=== PATIENT | female | born 1950 | race Caucasian/White ===

== ENCOUNTER → 2017-01-07 | Outpatient (CLI) | payer OTHER ==
[~2017-01-07] MED LIST: ASPI81TA21 PO; ATEN-173 PO; CALC-354; CARB25TA12 PO; CHOL2000; CLON0.5T3 PO; CRS10 PO; FLUO40CA8 PO; HYDR2TAB3 PO; OMEG10007 PO; PANT40TA PO; VALA1TAB2 PO
[2017-01-07 12:42] LABS: BASO % 0.8 %; BASO ABS # 0.06 K/uL (0-0.2); COMPLETE YES; EOS % 7.5 %; HEMATOCRIT 45.2 % (37-47); IG% 0.1 %; LYMPH % 25.5 %; LYMPH ABS # 1.94 K/uL (1.2-3.4); MEAN CELL VOLUME 89.2 fL (80-100); MEAN CORPUSCULAR HEMOGLOBIN 30.6 pg (25-34); MEAN CORPUSCULAR HGB CONC 34.3 g/dl (32-36); MEAN PLATELET VOLUME 10.6 fL (7.4-10.4); MONO % 6.7 %; NEUT % 59.4 %; PLATELET COUNT 313 K/uL (130-400); RED BLOOD COUNT 5.07 M/uL (4.2-5.4)
[2017-01-07 13:11] LABS: BLOOD UREA NITROGEN 19 mg/dl (7-18); BUN/CREATININE RATIO 26.3 (10-20); CARBON DIOXIDE 30 mmol/L (21-32); CHLORIDE 104 mmol/L (98-107); CREATININE 0.72 mg/dl (0.60-1.20); GLUCOSE 52 mg/dl (70-99); POTASSIUM 3.5 mmol/L (3.5-5.1); SODIUM 141 mmol/L (136-145)
== END | disposition home or self-care (01) ==
LOC: C.CPL 10:42
PROVIDERS: ATTEND Orthopaedic Surgery
DX: M75.02 Adhesive capsulitis of left shoulder (principal); Z01.812 Encounter for preprocedural laboratory examination; Z01.810 Encounter for preprocedural cardiovascular examination

== ENCOUNTER → 2017-08-07 | Outpatient (CLI) | payer OTHER ==
--- NOTE | 2017-08-07 14:35 | MAMMOGRAPHY REPORT ---
BILATERAL DIGITAL SCREENING MAMMOGRAM TOMOSYNTHESIS WITH CAD: 08/07/2017 CLINICAL HISTORY: Routine screening. Patient has no complaints. TECHNIQUE: Breast tomosynthesis in addition to standard 2D mammography was performed. Current study was also evaluated with a Computer Aided Detection (CAD) system. COMPARISON: Comparison is made to exams dated: 08/05/2016 mammogram, 07/17/2015 mammogram, 06/18/2013 mammogram, 07/14/2014 mammogram, 04/28/2012 mammogram, and 04/10/2011 mammogram - [facility]. BREAST COMPOSITION: There are scattered areas of fibroglandular density in both breasts. FINDINGS: No suspicious masses, calcifications, or areas of architectural distortion are noted in ei ther breast. There has been no significant interval change compared to prior exams. Bilateral benign appearing calcifications are not significantly changed. A linear scar marker denotes a scar on the left superior posterior breast. IMPRESSION: ACR BI-RADS CATEGORY 2: BENIGN There is no mammographic evidence of malignancy. A 1 year screening mammogram is recommended. The pa tient will receive written notification of the results. Approximately 10% of breast cancers are not detected with mammography. A negative mammographic report should not delay biopsy if a clinically suggestive mass is present. Angela Schulz M.D. ah/:08/07/2017 13:26:01 Database Manager: Nazanin JAMES(Ana)(M), [facility] letter sent: Normal 1/2 BI-RADS Code: ACR BI-RADS Category 2: Benign
== END | disposition home or self-care (01) ==
LOC: C.MAMM 09:27
PROVIDERS: ATTEND Physician Assistant
DX: Z12.31 Encounter for screening mammogram for malignant neoplasm of breast (principal)

== ENCOUNTER 2018-01-08 10:09 | Emergency (ER) | payer OTHER ==
[~2018-01-08] VITALS: Ht 160 cm; Wt 89.1 kg
[~2018-01-08 10:09] MED LIST changes: +ASPI-319 PO; -ASPI81TA21 PO
[2018-01-08 10:26] VITALS: TEMP 36.7; Ht 160 cm; Wt 89.1 kg
[2018-01-08] MEDS ORDERED: PHEN-876 PO ×2 (11:06→16:06)
[2018-01-08] MEDS ORDERED: IBUP-1050 PO (11:06)
[2018-01-08] MEDS ORDERED: TYLOTC500 PO (11:06)
[2018-01-08] MEDS ORDERED: CLIN150C PO (11:06)
[2018-01-08 11:47] LABS: BASO % 0.2 %; BASO ABS # 0.03 K/uL (0-0.2); EOS % 7.5 %; EOS ABS # 1.03 K/uL (0-0.5); HEMATOCRIT 41.5 % (37-47); HEMOGLOBIN 14.7 g/dL (12.0-16.0); IG# 0.03 K/uL (0.00-0.02); LYMPH % 9.2 %; LYMPH ABS # 1.26 K/uL (1.2-3.4); MEAN CELL VOLUME 88.1 fL (80-100); MEAN CORPUSCULAR HEMOGLOBIN 31.2 pg (25-34); MEAN CORPUSCULAR HGB CONC 35.4 g/dl (32-36); MONO % 5.2 %; MONO ABS # 0.72 K/uL (0.11-0.59); NEUT % 77.7 %; NEUT ABS # 10.69 K/uL (1.4-6.5); PLATELET COUNT 249 K/uL (130-400); RED CELL DISTRIBUTION WIDTH CV 12.5 % (11.5-14.5); RED CELL DISTRIBUTION WIDTH SD 40.5 fL (36.4-46.3); WHITE BLOOD COUNT 13.76 K/uL (4.8-10.8)
[2018-01-08 11:54] LABS: INR 0.9 (0.9-1.1); PTT PATIENT 25.1 SECONDS (21.0-31.0)
[2018-01-08 12:03] LABS: ALBUMIN 3.7 gm/dl (3.4-5.0); CALCIUM 8.6 mg/dl (8.5-10.1); CREATININE 0.78 mg/dl (0.60-1.20); POTASSIUM 4.1 mmol/L (3.5-5.1)
[2018-01-08] MEDS ORDERED: OPTIRAY 320 IV PRN (12:30)
--- NOTE | 2018-01-08 13:10 | DIAGNOSTIC IMAGING REPORT ---
CT SCAN OF THE ABDOMEN AND PELVIS WITH IV CONTRAST CLINICAL HISTORY: Urinary tract infection. Hematuria. COMPARISON STUDY: Abdominal CT dated 01/13/2008. TECHNIQUE: Following the IV administration of 115 cc of Optiray 320, CT scan of the abdomen and pelvis is performed from the lung bases to the proximal femora. Images are reviewed in the axial, sagittal, and coronal planes. IV contrast was administered without complication. A dose lowering technique was utilized adhering to the principles of ALARA. CT DOSE: 656.77 mGy.cm FINDINGS: Lung bases: The heart is normal in size and without pericardial effusion. The lung bases are clear. Liver: The contrast-enhanced liver is normal in size, contour, and attenuation. There is mild central intrahepatic biliary ductal dilatation. The hepatic veins and portal veins are patent. Gallbladder: Surgically absent noting clips in the gallbladder fossa. Spleen: Normal in size and attenuation. Pancreas: Unremarkable. Adrenal glands: Unremarkable. Kidneys: The contrast enhanced kidneys are normal in size and without hydronephrosis. The kidneys enhance symmetrically. Abdominal vasculature: The abdominal aorta is normal in course and caliber noting moderate atherosclerotic calcification. Bowel: There is a small duodenal diverticulum. No bowel obstruction is seen. The appendix is not clearly identified. Peritoneum: There is no intraperitoneal free air or abdominal ascites. There is a small fat-containing umbilical hernia. Lymphadenopathy: None. Pelvic viscera: The bladder wall is thickened and hyperemic. There is pericystic inflammation, and the appearance suggests cystitis. The uterus and adnexa are normal as imaged. Skeletal structures: The skeletal structures are osteopenic. No lytic or blastic lesions are seen. IMPRESSION: Findings suggest cystitis. Correlation with clinical findings and urinalysis will be required. Electronically signed by: Christian Kramer M.D. 01/08/2018 1:08 PM Dictated Date/Time: 01/08/2018 1:03 PM
[2018-01-08] MEDS ORDERED: CEFTRIAXONE SOD INJ 1 GM ADDVIAL IV STA (13:55)
[2018-01-08] MEDS ORDERED: CEFD300C2 PO (16:06)
[2018-01-08 16:21] VITALS: BP 133/77; PULSE 77; O2SAT 94
--- NOTE | 2018-01-08 17:40 | EMERGENCY ROOM VISIT NOTE ---
History Report prepared by Jennifer: Yandel Austin Under the Supervision of: Dr. Elton Felix M.D. First contact with patient: 10:34 Chief Complaint: URINARY SYMPTOMS Stated Complaint: PASSING BLOOD AND CLOTS, PAIN History of Present Illness The patient is a 67 year old female who presents to the Emergency Room with complaints of persistent urinary symptoms beginning a few days ago. Her symptoms include increased urinary frequency, pain with urination, and hematuria. She has taken Pyridium which improves her symptoms. The patient has noticed clots as well. She is not entirely sure if the bleeding is vaginal, rectal, or from her urine (she assumes it is urine). She was seen by her PCP for her symptoms a few days ago and had a negative urine culture. The urine culture was done a day after she took Augmentin. The patient notes that she was placed on Clindamycin last week for a "boil" on her rectum, and a tooth infection. She states that she then developed a yeast infection after this. She reports that she has been having a lot of diarrhea since starting the Clinda. Pt denies LOC, headache, fevers, chills, diaphoresis, visual changes, neck pain , chest pain, breathing difficulties, nausea, vomiting, abdominal pain, back pain, melena, hematochezia, numbness, weakness, lymphadenopathy, rash, or other complaints. Source of History: patient Onset: A few days ago Symptom Intensity: Pain with urination, hematuria and increased frequency Quality: other (urinary symptoms) Timing: other (persistent) Modifying Factors (Relieving): other (Pyridium) Associated Symptoms: + diarrhea Review of Systems See HPI for pertinent positives and negatives. A total of ten systems were reviewed and were otherwise negative. Past Medical & Surgical Medical Problems: (1) GERD (gastroesophageal reflux disease) (2) HLD (hyperlipidemia) (3) HTN (hypertension) (4) Right knee DJD Family History No pertinent family history stated. Social History Smoking Status: Never Smoker Marital Status: Housing Status: lives with significant other Current/Historical Medications Scheduled Acetaminophen (Tylenol), 500 MG PO DIRECTED Aspirin Enteric Coated (Ecotrin Or Generic), 81 MG PO HS Atenolol (Tenormin), 25 MG PO HS Carbidopa/Levodopa (Sinemet 25MG/100MG), 1 TAB PO TID Cefdinir (Omnicef), 300 MG PO Q12H Cholecalciferol (Vitamin D3), HS Clindamycin Hcl (Cleocin), 150 CAP PO QID Clonazepam (Klonopin), 0.5 MG PO prn Fish Oil ([place]-3), 1 CAP PO DAILY Fluoxetine Hcl (Prozac), 40 MG PO HS Pantoprazole Sodium (Protonix), 40 MG PO HS Phenazopyridine HCl (Pyridium), 1 TAB PO DAILY Rosuvastatin Calcium (Crestor *), 10 MG PO HS Valacyclovir Hcl (Valtrex), 1,000 MG PO HS Scheduled PRN Hydromorphone HCl (Hydromorphone HCl), 4 MG PO Q4HWA PRN for Pain Ibuprofen (Advil), 200-600 MG PO Q4H PRN for Pain Phenazopyridine HCl (Pyridium), 200 MG PO TID PRN for Frequency/Burning w/ Urination Allergies Coded Allergies: Statins (Verified Adverse Reaction, Unknown, JOINT PAIN, 01/08/18) Physical Exam Vital Signs Date Time Temp Pulse Resp B/P (MAP) Pulse Ox O2 Delivery O2 Flow Rate FiO2 01/08/18 16:21 77 18 133/77 94 01/08/18 15:01 77 18 135/76 98 Room Air 01/08/18 12:30 62 20 125/71 99 Room Air 01/08/18 10:26 36.7 67 18 164/88 96 Room Air Physical Exam GENERAL: Awake, alert, well-appearing, in no distress HENT: Normocephalic, atraumatic. Oropharynx unremarkable. EYES: Normal conjunctiva. Sclera non-icteric. NECK: Supple. No nuchal rigidity. FROM. No masses. RESPIRATORY: Clear to auscultation. No wheezes. No rales. Normal respiratory effort. CARDIAC: Normal rate. Normal rhythm. No murmurs. No rubs. Extremities warm and well perfused. Pulses equal. No JVD. GI: Soft, non-distended. Suprapubic tenderness to palpation. No rebound or guarding. No masses. RECTAL: Deferred. MUSCULOSKELETAL: Atraumatic. Chest examination reveals no tenderness. The back is symmetrical on inspection without obvious abnormality. There is no CVA tenderness to palpation. No joint edema. LOWER EXTREMITIES: Calves are equal size bilaterally and non-tender. No edema. No discoloration. NEURO: Normal sensorium. No sensory or motor deficits noted. SKIN: No rash or jaundice noted. Medical Decision & Procedures ER Provider Diagnostic Interpretation: Radiology results as stated below per my review and radiologist interpretation: CT SCAN OF THE ABDOMEN AND PELVIS WITH IV CONTRAST FINDINGS: Lung bases: The heart is normal in size and without pericardial effusion. The lung bases are clear. Liver: The contrast-enhanced liver is normal in size, contour, and attenuation. There is mild central intrahepatic biliary ductal dilatation. The hepatic veins and portal veins are patent. Gallbladder: Surgically absent noting clips in the gallbladder fossa. Spleen: Normal in size and attenuation. Pancreas: Unremarkable. Adrenal glands: Unremarkable. Kidneys: The contrast enhanced kidneys are normal in size and without hydronephrosis. The kidneys enhance symmetrically. Abdominal vasculature: The abdominal aorta is normal in course and caliber noting moderate atherosclerotic calcification. Bowel: There is a small duodenal diverticulum. No bowel obstruction is seen. The appendix is not clearly identified. Peritoneum: There is no intraperitoneal free air or abdominal ascites. There is a small fat-containing umbilical hernia. Lymphadenopathy: None. Pelvic viscera: The bladder wall is thickened and hyperemic. There is pericystic inflammation, and the appearance suggests cystitis. The uterus and adnexa are normal as imaged. Skeletal structures: The skeletal structures are osteopenic. No lytic or blastic lesions are seen. IMPRESSION: Findings suggest cystitis. Correlation with clinical findings and urinalysis will be required. Electronically signed by: Christian Kramer M.D. 01/08/2018 1:08 PM Laboratory Results 01/08/18 11:28 Red Blood Count 4.71, Mean Corpuscular Volume 88.1, Mean Corpuscular Hemoglobin 31.2, Mean Corpuscular Hemoglobin Concent 35.4, Mean Platelet Volume 10.0, Neutrophils (%) (Auto) 77.7, Lymphocytes (%) (Auto) 9.2, Monocytes (%) (Auto) 5.2, Eosinophils (%) (Auto) 7.5, Basophils (%) (Auto) 0.2, Neutrophils # (Auto) 10.69, Lymphocytes # (Auto) 1.26, Monocytes # (Auto) 0.72, Eosinophils # (Auto) 1.03, Basophils # (Auto) 0.03 01/08/18 11:28 Test 01/08/18 11:15 01/08/18 11:28 Urine Color ZEV Urine Appearance CLOUDY (CLEAR) Urine pH (4.5-7.5) Urine Specific [place] 1.015 (1.000-1.030) Urine Protein NEG (NEG) Urine Glucose (UA) (NEG) Urine Ketones (NEG) Urine Occult Blood (NEG) Urine Nitrite (NEG) Urine Bilirubin (NEG) Urine Urobilinogen (NEG) Urine Leukocyte Esterase (NEG) Urine RBC >30 /hpf (0-4) Urine WBC >30 /hpf (0-5) Urine Epithelial Cells 10-20 /lpf (0-5) Urine Renal Cells 5-10 /lpf (FEW) Urine Bacteria 1+ (NEG) Urine Hyaline Casts 1-5 /lpf (0-5) White Blood Count 13.76 K/uL (4.8-10.8) Red Blood Count 4.71 M/uL (4.2-5.4) Hemoglobin 14.7 g/dL (12.0-16.0) Hematocrit 41.5 % (37-47) Mean Corpuscular Volume 88.1 fL (80-100) Mean Corpuscular Hemoglobin 31.2 pg (25-34) Mean Corpuscular Hemoglobin Concent 35.4 g/dl (32-36) Platelet Count 249 K/uL (130-400) Mean Platelet Volume 10.0 fL (7.4-10.4) Neutrophils (%) (Auto) 77.7 % Lymphocytes (%) (Auto) 9.2 % Monocytes (%) (Auto) 5.2 % Eosinophils (%) (Auto) 7.5 % Basophils (%) (Auto) 0.2 % Neutrophils # (Auto) 10.69 K/uL (1.4-6.5) Lymphocytes # (Auto) 1.26 K/uL (1.2-3.4) Monocytes # (Auto) 0.72 K/uL (0.11-0.59) Eosinophils # (Auto) 1.03 K/uL (0-0.5) Basophils # (Auto) 0.03 K/uL (0-0.2) RDW Standard Deviation 40.5 fL (36.4-46.3) RDW Coefficient of Variation 12.5 % (11.5-14.5) Immature Granulocyte % (Auto) 0.2 % Immature Granulocyte # (Auto) 0.03 K/uL (0.00-0.02) Prothrombin Time 9.9 SECONDS (9.0-12.0) Prothromb Time International Ratio 0.9 (0.9-1.1) Activated Partial Thromboplast Time 25.1 SECONDS (21.0-31.0) Partial Thromboplastin Ratio 1.0 Anion Gap 4.0 mmol/L (3-11) Est Creatinine Clear Calc Drug Dose 74.1 ml/min Estimated GFR () 91.2 Estimated GFR (Non- 78.7 BUN/Creatinine Ratio 17.1 (10-20) Calcium Level 8.6 mg/dl (8.5-10.1) Total Bilirubin 0.7 mg/dl (0.2-1) Direct Bilirubin 0.1 mg/dl (0-0.2) Aspartate Amino Transf (AST/SGOT) 13 U/L (15-37) Alanine Aminotransferase (ALT/SGPT) 20 U/L (12-78) Alkaline Phosphatase 84 U/L (45-117) Total Protein 7.0 gm/dl (6.4-8.2) Albumin 3.7 gm/dl (3.4-5.0) Lipase 148 U/L (73-393) Laboratory results reviewed by me Medications Administered Medications (Trade) Dose Ordered Sig/Michael Route Start Time Stop Time Status Last Admin Dose Admin Ceftriaxone Sodium (Rocephin Inj) 1 gm NOW STAT IV 01/08/18 13:55 01/08/18 13:56 DC 01/08/18 15:01 1 GM ED Course 1038: The patient was evaluated in room B3B. A complete history and physical exam was performed. 1228: I updated the patient on her test results. She agrees to getting a CT. 1352: I reassessed the patient. Her symptoms have completely resolved. 1355: Ordered Rocephin Inj 1 gm IV. 1530: I reevaluated the patient. Discussed results and discharge instructions: she verbalized understanding and agreement. The patient is ready for discharge. Medical Decision Urine Culture obtained from January 06, 2018 from [facility] was unremarkable. Triage Nursing notes reviewed. The patient's presentation and history were concerning for possible hematuria. Etiologies such as UTI, cystitis, pyelonephritis, vaginal bleeding, rectal bleeding, renal colic, appendicitis, diverticulitis, mesenteric ischemia, aortic pathology, infections, inflammatory bowel disease, PUD, biliary pathology , as well as others were entertained. The patient has a slight leukocytosis on CBC. Chemistry panel was unremarkable. Urinalysis by catheter specimen was very concerning for infection. Hematuria noted. The patient underwent CT imaging and was found to have significant cystitis. No other intra-abdominal pathology was noted. Her urine culture from the outpatient clinic did not reveal any abnormal findings however she was taking Augmentin for several days prior to giving the specimen. This could skew the true culture results. Clindamycin would not provide adequate urinary coverage. It is possible that she had a partially treated UTI which worsened once the antibiotics were switched. She was given a dose of IV Rocephin. She will be placed on Omnicef for 1 week. She will take probiotic. She will follow-up closely with her outpatient provider. A urine culture was sent here from the catheter specimen. She feels very comfortable with this plan. If she worsens in any way she will be back to the ER. I did spend a significant amount of time discussing the issue with her and her . She was observed for many hours in the emergency department and did very well. I gave my usual and customary discussion regarding this issue. By the evaluation outlined above other emergent etiologies such as those listed in the differential, as well as others, were deemed relatively unlikely. The patient was educated about the findings as listed above. All questions were answered and the patient was pleased with the treatment. Return instructions were outlined and the patient was discharged in stable condition. The patient was referred to the primary office for follow-up for a recheck of the current condition. Medication Reconcilliation Current Medication List: was personally reviewed by me Blood Pressure Screening Patient's blood pressure: Normal blood pressure Blood pressure disposition: Did not require urgent referral Impression Primary Impression: Cystitis Additional Impressions: UTI (urinary tract infection) Hematuria Scribe Attestation The scribe's documentation has been prepared under my direction and personally reviewed by me in its entirety. I confirm that the note above accurately reflects all work, treatment, procedures, and medical decision making performed by me. Departure Information Dispostion Home / Self-Care Prescriptions Phenazopyridine HCl (Pyridium) 200 Mg Tab 200 MG PO TID Y for Frequency/Burning w/Urination, #10 TAB Prov: Elton Felix MD 01/08/18 Cefdinir (OMNICEF) 300 Mg Cap 300 MG PO Q12H, #14 CAP Prov: Elton Felix MD 01/08/18 Referrals Corey Quigley M.D. (PCP) Forms HOME CARE DOCUMENTATION FORM, IMPORTANT VISIT INFORMATION Patient Instructions My [facility] Additional Instructions Urinalysis was very concerning for infection. CT imaging showed significant cystitis or inflammation of your bladder. Follow-up with your primary physician closely, first thing next week. Urology follow-up may be necessary and this can be done through your primary office. Omnicef 300 mg twice daily for 7 days. All antibiotics can cause diarrhea. If this occurs and you feel worse or it does not resolve in 1-2 days follow up with your doctor or return to the Emergency Department as this could be signs of serious underlying problems. Any medication can cause an allergic reaction, stop the pills immediately and return to the ER for rash, hives, breathing difficulties, or swelling. Pyridium 200mg: Take one pill three times daily as needed for urinary discomfort. This medication will turn your urine orange. This is normal and nothing to be concerned about. Ibuprofen(Motrin, Advil) may be used for fever or pain. Use 600mg every six hours as needed. Take with food. Avoid using more than 2400mg in a 24 hour period. Do not use 2400mg per day for more than three consecutive days without physician direction. Prolonged inappropriate use can lead to stomach upset or ulcers. (AND/OR) Acetaminophen(Tylenol) may be used for fever or pain. Use 1000mg every six hours as needed. Avoid using more than 4000mg in a 24 hour period. Take a probiotic as discussed. Discussed this with your pharmacist. Rest and drink plenty of fluids. Continue current medications. Return to the ER immediately for worsening or persistent abdominal pain, vomiting, fevers, back or flank pain, worsening of your condition, or as needed. Problem Qualifiers
== END 2018-01-08 16:15 | disposition home or self-care (01) ==
LOC: C.EDB 10:10
DX: N30.90 Cystitis, unspecified without hematuria (principal); N39.0 Urinary tract infection, site not specified; R31.9 Hematuria, unspecified; K21.9 Gastro-esophageal reflux disease without esophagitis; R78.5 Finding of other psychotropic drug in blood; I10 Essential (primary) hypertension; Z88.8 Allergy status to other drugs, medicaments and biological substances

== ENCOUNTER 2024-04-06 18:29 | Observation (INO) ==
[2024-04-06 19:08] LABS: Basophils # (auto) 0.04 K/uL (0.00-0.20); Basophils % (auto) 0.6 %; Eosinophils # (auto) 0.04 K/uL (0.00-0.50); Eosinophils % (auto) 0.6 %; Hematocrit (blood only) 39.8 % (37.0-47.0); Hemoglobin 13.3 g/dl (12.0-16.0); Immature Granulocytes # (auto) 0.03 K/uL (0.01-0.20); Immature Granulocytes % (auto) 0.4 %; Lymphocytes # (auto) 0.56 K/uL (1.20-3.40); Lymphocytes % (auto) 8.2 %; Mean Corpuscular Hemoglobin 29.6 pg (25.0-34.0); Mean Corpuscular Hgb Conc 33.4 g/dL (32.0-36.0); Mean Corpuscular Volume 88.6 fL (80.0-100.0); Mean Platelet Volume 9.9 fL (9.4-12.4); Monocytes # (auto) 0.54 K/uL (0.11-0.59); Monocytes % (auto) 7.9 %; Neutrophils # (auto) 5.59 K/uL (1.40-6.50); Neutrophils % (auto) 82.3 %; Platelet Count 184 K/uL (130-400); RDW Coefficient of Variation 12.9 % (11.5-14.5); Red Blood Count 4.49 M/uL (4.20-5.40)
[2024-04-06 19:24] LABS: Albumin Globulin Ratio 1.4 (0.9-2); Albumin Level 4.1 gm/dl (3.4-5.0); BUN Creatinine Ratio 19.2 (10-20); Bilirubin,Total 0.8 mg/dl (0.2-1.0); Calcium 9.4 mg/dl (8.6-10.3); Est GFR (African American) 65.5 ml/min; Est GFR (Non-African American) 56.5 ml/min; Globulin 2.9 gm/dl (2.5-4.0); Potassium 4.1 mmol/L (3.5-5.1)
[2024-04-06 19:31] LABS: Troponin I High Sensitivity 3.4 pg/ml (0-14)
[2024-04-06 19:37] LABS: INR 0.9 (0.9-1.1); Partial Thromboplastin Ratio 0.9; Partial Thromboplastin Time 25 Seconds (21-31); Prothrombin Time 9.9 Seconds (9.0-12.0)
--- NOTE | 2024-04-06 20:42 | Emergency Department Note ---
Impression & Plan Chest pain ED Provider Note NAME: RO HANCOCK AGE: 73 SEX: F : 1950 ARRIVES VIA: Walk-In INFORMANT: Patient, family member ED PROVIDER(S): Lloyd Tubbs MD CHIEF COMPLAINT: Chest pain MEDICAL DECISION MAKING: Patient presents due to concern for chest pain. IV was established and blood was obtained. Initial blood work EKG and chest x-ray relatively unremarkable. Patient is moderate risk heart score. There could be an inflammatory component. CT of the head was ordered also given the possible new facial droop although unclear as to whether or not this is new or old as the family is unsure as well as the patient. Patient CT of the head negative. Patient was ordered methylprednisolone and did have ESR and CRP added. I did speak the on-call hospital service Dr. Lynch the patient was admitted to the medicine service. Discussion w/ other healthcare providers: Dr. Lynch inpatient medicine service Prior /Outside records reviewed: None Differential diagnosis: Cardiac ischemia, aortic dissection, pulmonary embolism, pneumothorax, pneumonia, pericarditis, myocarditis, GERD, cholecystitis, pancreatitis, musculoskeletal, as well as other pathologies were considered. Diagnostics, as interpreted by me: ECG: Normal sinus rhythm, rate of 74, normal intervals, normal axis T wave version in lead III as well as in V3. Cardiac monitoring: An order was placed for continuous cardiac monitoring. The monitor shows a rate of 75 with sinus rhythm. Patient was placed on pulse oximetry Medical decision rules: Heart score Imaging studies: I informally interpreted the patient's chest x-ray without obvious pneumonia or pneumothorax with formal report to follow. HPI: Patient presents due to concern for chest pains. The patient reports that she has had chest pains for about 2 days in duration. Is primarily right-sided does have some associated neck pain. Patient denies any falls or trauma. The patient states that it is worse with taking a big deep breath. Remote prior history of DVT had been on treatment at that time and did have prophylactic treatment with Lovenox to avoid blood thinners during her most recent surgery for colorectal cancer. Patient denies any recent surgeries procedures or hospitalizations no recent prolonged car plane travel. Patient is accompanied by family member bedside they also believe that she might have slight facial droop on the left. Patient denies any prior history of stroke or mini stroke. Patient reportedly has not been taking NSAIDs but did take 800 mg yesterday and today but without significant improvement. Patient rates it 7 out of 10. It is also worse with moving around. PAST MEDICAL HISTORY: See Below PAST SURGICAL HISTORY: See Below SOCIAL HISTORY: See Below HOME MEDICATIONS: See Below ALLERGIES: See Below VITALS: See Below PHYSICAL EXAMINATION: GENERAL: NAD, non-toxic. EYE EXAM: Normal conjunctiva. PERRL, no anisocoria and EOM's grossly intact w/o pain. OROPHARYNX: Moist mucus membranes, grossly normal dentition. NECK: Trachea midline, no stridor. Chest: Some reproducible right-sided chest pain. LUNGS: Clear to auscultation. Normal chest wall mechanics. HEART: NSR, no MRG. ABDOMEN: Abdomen soft, non-tender, no masses, no rebound or guarding. BACK: No CVA TTP. SKIN: No rashes and no bruising. UPPER EXTREMITIES: Upper extremities are grossly normal. LOWER EXTREMITIES: Grossly normal, no edema. NEURO EXAM: A&O x3, cranial nerves II-XII grossly intact with exception of slight asymmetry of the grimace on the left side but able to raise the eyebrow and close her left eye without issue, normal speech, moves all 4 extremities. No sensory deficits Past Med/Surg History Problem List (Updated 04/07/24 @ 18:47 by Lloyd Tubbs MD) Chest pain (Acute) Atypical chest pain History of colon polyps Encounter for pre-operative examination HTN (hypertension) (Chronic) GERD (gastroesophageal reflux disease) (Chronic) HLD (hyperlipidemia) (Chronic) Cystitis (Acute) Hematuria (Acute) UTI (urinary tract infection) (Acute) Lumbar radiculopathy Dysuria Urinary frequency Other urethral stricture, female Encounter for pre-operative examination Urethral cancer Medical History Urethral cancer recently dx Other urethral stricture, female IBS (irritable bowel syndrome) Hiatal hernia GERD (gastroesophageal reflux disease) Depression Anxiety Hyperlipidemia Hypertension Sleep apnea no longer using cpap Surgical History History of cystoscopy urethral dilation with TURBT, 05/24/21 [facility] Hx of vaginal surgery cyst removal History of total knee replacement bilat History of colonoscopy History of bilateral tubal ligation History of cholecystectomy History of tooth extraction No pertinent past surgical history Social History Smoking Status: Never smoker Second Hand Exposure: No; Do You Dip or Chew Tobacco: No; Tobacco Cessation Education Requested by Patient: No Hx Alcohol Use: Yes Alcohol type: beer and hard liquor Hx Substance Use: No Preferred Language: Nepali Communication Ability: Effective Manager Biostatistics Required: No Beliefs That Will Affect Care: None Current Living Situation: Alone Other Information That Helps Us Care for You: No Feels Safe at Home: Yes Safety Concerns: Feels Safe At This Time Assistive Devices: Glasses Allergies Allergies Allergy/AdvReac Type Severity Reaction Status Date / Time Bfxonrb-VSY-SeN Reductase AdvReac Unknown MUSCLE Verified 04/06/24 21:13 Inhibitor PAIN/WEAKNESS [Itwiagi-Dqs-Wxz Reductase Inhibitor] Home Meds Home Medications Medication Instructions Recorded Confirmed fluoxetine 40 mg capsule (Prozac) 40 mg PO HS 08/15/20 04/06/24 valacyclovir 1 gram tablet 500 mg PO HS 08/15/20 04/06/24 (Valtrex) omeprazole 20 mg capsule,delayed 20 mg PO HS 02/21/21 04/06/24 release clonazepam 0.5 mg tablet 0.5 mg PO BID PRN Anxiety 06/14/21 04/06/24 atenolol 50 mg tablet 25 mg PO HS 07/28/21 04/06/24 aspirin 81 mg tablet,delayed 81 mg PO HS 04/06/24 04/06/24 release egdyrqqo-ojl-jehgp0 250 mg-dha 90 1 cap PO HS 04/06/24 04/06/24 mg-epa 160 hm-ahyc-yppt-zeax capsule (Ocuvite Adult 50 Plus) nystatin 100,000 unit/gram topical 1 applic topical BID PRN Skin 04/06/24 04/06/24 powder Irritation polyethylene glycol 3350 17 17 g PO BID PRN Constipation 04/06/24 04/06/24 gram/dose oral powder (Miralax) rosuvastatin 10 mg tablet 10 mg PO HS 04/06/24 04/06/24 Previous Rx's Medication Instructions Recorded lidocaine 4 % topical patch 1 patch topical DAILY #10 ea 04/07/24 tramadol 25 mg tablet 25 mg PO Q6H PRN pain #14 tabs 04/07/24 Results & Data (ED) Vital Signs Vital Signs - 24 hr 04/06/24 20:30 04/06/24 20:30 04/06/24 20:30 Pulse Rate Pulse Rate [Finger] 76 Pulse Rhythm [Finger] Regular Pulse Strength [Finger] Normal Respiratory Rate 20 Respiratory Effort / Characteristics Non-Labored Spontaneous Respiratory Depth Normal Respiratory Pattern Regular Blood Pressure [Right Arm] 159/110 H Blood Pressure Mean [Right Arm] 126 Pulse Oximetry 98 98 Oxygen Delivery Method Room Air Room Air Room Air 04/06/24 20:50 04/06/24 22:00 Pulse Rate 77 Pulse Rate [Finger] 75 Pulse Rhythm [Finger] Regular Pulse Strength [Finger] Normal Respiratory Rate 20 Respiratory Effort / Characteristics Non-Labored Spontaneous Respiratory Depth Normal Respiratory Pattern Regular Blood Pressure [Right Arm] 126/74 Blood Pressure Mean [Right Arm] 91 Pulse Oximetry 96 Oxygen Delivery Method Room Air Home Medications Current Medication List: was personally reviewed by me Laboratory Data Attestation: I reviewed the patient's lab results. 04/07/24 05:23 04/07/24 05:23 Lab Results 04/06/24 Range/Units 18:41 WBC 6.80 (4.8-10.8) K/ul RBC 4.49 (4.20-5.40) M/uL Hgb 13.3 (12.0-16.0) g/dl Hct 39.8 (37.0-47.0) % MCV 88.6 (80.0-100.0) fL MCH 29.6 (25.0-34.0) pg MCHC 33.4 (32.0-36.0) g/dL RDW Std Deviation 42.0 (36.4-46.3) fL RDW Coeff of Zainab 12.9 (11.5-14.5) % Plt Count 184 (130-400) K/uL MPV 9.9 (9.4-12.4) fL Immature Gran % (Auto) 0.4 % Neut % (Auto) 82.3 % Lymph % (Auto) 8.2 % [place] % (Auto) 7.9 % Eos % (Auto) 0.6 % Baso % (Auto) 0.6 % Neut # (Auto) 5.59 (1.40-6.50) K/uL Lymph # (Auto) 0.56 L (1.20-3.40) K/uL [place] # (Auto) 0.54 (0.11-0.59) K/uL Eos # (Auto) 0.04 (0.00-0.50) K/uL Baso # (Auto) 0.04 (0.00-0.20) K/uL Immature Gran # (Auto) 0.03 (0.01-0.20) K/uL ESR 27 (0-30) mm/hr PT 9.9 (9.0-12.0) Seconds INR 0.9 (0.9-1.1) APTT 25 (21-31) Seconds PTT Ratio 0.9 Sodium 137 (136-145) mmol/L Potassium 4.1 (3.5-5.1) mmol/L Chloride 104 (98-107) mmol/L Carbon Dioxide 25 (21-32) mmol/L Anion Gap 8 (3-11) BUN 19 (6-23) mg/dl Creatinine 0.99 (0.6-1.2) mg/dl Est Cr Clr Drug Dosing 57.0 ml/min Est GFR ( Amer) 65.5 ml/min Est GFR (Non-Af Amer) 56.5 ml/min BUN/Creatinine Ratio 19.2 (10-20) Glucose 117 H (70-99(Fasting)) mg/dl Calcium 9.4 (8.6-10.3) mg/dl Magnesium 1.7 (1.7-2.4) mg/dl Total Bilirubin 0.8 (0.2-1.0) mg/dl AST 14 (13-39) U/L ALT 9 (7-52) U/L Alkaline Phosphatase 83 (34-104) U/L Troponin I High Sens 3.4 (0-14) pg/ml C-Reactive Protein 2.79 H (0-0.5) mg/dl Total Protein 7.0 (6.0-8.3) gm/dl Albumin 4.1 (3.4-5.0) gm/dl Globulin 2.9 (2.5-4.0) gm/dl Albumin/Globulin Ratio 1.4 (0.9-2) Lyme Disease Screen Negative (Negative) Administered Medications Discontinued Medications Clonazepam (Clonazepam 0.5 Mg Tab) 0.5 mg PO BID PRN PRN Reason: Anxiety Stop: 05/06/24 23:27 Last Admin: 04/07/24 02:03 Dose: 0.5 mg Documented By: YUE Enoxaparin Sodium (Enoxaparin Inj 40 Mg/0.4 Ml Syr) 40 mg SQ QAM JERRY Stop: 05/07/24 08:59 Last Admin: 04/07/24 09:11 Dose: 40 mg Documented By: FUAD Fluoxetine HCl (Fluoxetine Hcl 20 Mg Cap) 40 mg PO HS JERRY Stop: 05/07/24 01:17 Last Admin: 04/07/24 01:41 Dose: 40 mg Documented By: YUE Sodium Chloride (Nss) 1,000 mls @ 80 mls/hr IV .[id number] ONE Stop: 04/07/24 11:51 Last Infusion: 04/07/24 14:40 Dose: Infused Documented By: Admin: 04/06/24 23:57 Dose: 80 mls/hr Documented By: MAYI Ioversol (Optiray 320 125ml) 125 ml IV ONCE ONE Stop: 04/07/24 00:12 Last Admin: 04/07/24 00:12 Dose: 118 ml Documented By: LOGAN Ketorolac Tromethamine (Ketorolac Tromethamine 15 Mg/Ml Vial) 15 mg IV NOW ONE Stop: 04/06/24 23:22 Last Admin: 04/06/24 23:54 Dose: 15 mg Documented By: MAYI Methylprednisolone (Methylprednisolone 125 Mg/2 Ml Vial) 125 mg IV NOW STA Stop: 04/06/24 22:01 Last Admin: 04/06/24 22:54 Dose: 125 mg Documented By: MAYI Imaging Data Radiologist's Impression: Chest X-Ray 04/06/24 18:41 XR chest 1V not portable CLINICAL HISTORY: Chest pain, nonspecific TECHNIQUE: Single frontal radiograph of the chest was obtained. Comparison: Comparison is made to chest radiograph 05/22/2021 FINDINGS: No lines and tubes are seen. The cardiomediastinal silhouette is normal. The lungs are clear. No evidence of pleural effusion or pneumothorax. IMPRESSION: No acute chest disease. ACT 112: Negative or not required by law. Electronically signed by: Donavan Dean M.D. 04/07/2024 6:48 AM Exam(s): CT HEAD Without Contrast EXAM: CT Head Without Intravenous Contrast CLINICAL HISTORY: Reason for exam: ?new facial droop L face. TECHNIQUE: Axial computed tomography images of the head/brain without intravenous contrast. Automated exposure control was utilized for the study. A dose lowering technique was utilized adhering to the principles of ALARA. COMPARISON: No relevant prior studies available. FINDINGS: Brain: Age-related cerebral volume loss. Periventricular and subcortical white matter hypoattenuation, consistent with chronic microangiopathy. No acute intracranial hemorrhage. No midline shift or mass effect. Ventricles: Unremarkable. No ventriculomegaly. Bones/joints: Unremarkable. No acute fracture. Soft tissues: Unremarkable. Sinuses: Unremarkable as visualized. No acute sinusitis. Mastoid air cells: Unremarkable as visualized. No mastoid effusion. IMPRESSION: No acute intracranial hemorrhage. No midline shift or mass effect. Electronically signed by: Devaughn Arrington MD 04/07/24 00:43 AM Dictated: 04/07/2442 Transcribed: 04/07/2442 Discharge Plan Visit Data Chief Complaint: Chest Pain Stated Complaint: NECK/SHOULDER PAIN, CHEST PAIN/WHILE BREATHING ED Provider: Lloyd Tubbs Discharge Problem: Chest pain Patient Disposition: Admitted As Inpatient Discharge Instructions Interventions: ED Discharge Assessment Last Done: 04/07/24 00:36 Discharge Problem: Chest pain Qualifiers: Chest pain type: unspecified Qualified Code(s): R07.9 - Chest pain, unspecified
[2024-04-06 22:32] LABS: C Reactive Protein 2.79 mg/dl (0-0.5); Magnesium 1.7 mg/dl (1.7-2.4)
[2024-04-06] MEDS: methylPREDNISolone 125 MG/2 ML VIAL IV STA (22:54)
--- NOTE | 2024-04-06 23:22 | History & Physical Report ---
Date of Service April 06, 2024 Assessment & Plan (1) Atypical chest pain: Plan: Rule out PE History of DVT status post anticoagulation Musculoskeletal component along with anxiety Flattened left nasolabial fold ? Stroke of unknown duration hypertension, erratic BP at the ER hyperlipidemia, on statin Rx BYRON currently not on CPAP, patient awaiting for new machine bladder cancer status post surgery PUD, on PPI prediabetes, hemoglobin A1c of 5.12 December 2023 OBS Medical telemetry Analgesia, anxiolytic as needed CT chest PE study MRI/MRA brain, TTE, carotid Dopplers for stroke workup Further management contingent on workup results Update hemoglobin A1c DVT prophylaxis. Lovenox subcu Full code Patient daughter requesting updates providers. Ms. Peg Angel, contact #[phone]. Text document was generated using Codewise voice recognition software. It may contain grammatical or spelling errors. Kindly contact undersigned for clarification of any documentation item in question. History of Present Illness Chief Complaint: right-sided chest pain, SOB Primary Care Provider: Corey Quigley MD History obtained from patient, family, and records. Medical history significant for hypertension, hyperlipidemia, history of DVT status post anticoagulation, BYRON currently not on CPAP, bladder cancer status post surgery, PUD, prediabetes, RLS, anxiety/mood disorder. Last confinement 2013 under orthopedic service for elective right knee surgery. Unremarkable postop course. 1 day history of achy right-sided pleuritic chest pain with SOB. No unusual cough symptoms. Some neck discomfort. No recollection of recent trauma. Usual stress at home. At the ER, patient left lower lip noted to be kind of droopy by staff and family. Unknown duration. 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 Allergies Allergy/AdvReac Type Severity Reaction Status Date / Time Jkfcmhi-QGN-AmI Reductase AdvReac Unknown MUSCLE Verified 04/06/24 21:13 Inhibitor PAIN/WEAKNESS [Scivjzt-Vqs-Qpa Reductase Inhibitor] Home Medications Medication Instructions Recorded Confirmed Type fluoxetine 40 mg capsule (Prozac) 40 mg PO HS 08/15/20 04/06/24 History valacyclovir 1 gram tablet 500 mg PO HS 08/15/20 04/06/24 History (Valtrex) omeprazole 20 mg capsule,delayed 20 mg PO HS 02/21/21 04/06/24 History release clonazepam 0.5 mg tablet 0.5 mg PO BID PRN Anxiety 06/14/21 04/06/24 History atenolol 50 mg tablet 25 mg PO HS 07/28/21 04/06/24 History aspirin 81 mg tablet,delayed 81 mg PO HS 04/06/24 04/06/24 History release crpzmrrq-mrt- 250 mg-dha 90 1 cap PO HS 04/06/24 04/06/24 History mg-epa 160 ds-opuy-efld-zeax capsule (Ocuvite Adult 50 Plus) nystatin 100,000 unit/gram topical 1 applic topical BID PRN Skin 04/06/24 04/06/24 History powder Irritation polyethylene glycol 3350 17 17 g PO BID PRN Constipation 04/06/24 04/06/24 History gram/dose oral powder (Miralax) rosuvastatin 10 mg tablet 10 mg PO HS 04/06/24 04/06/24 History Past Med/Surg History Problem List (Updated 04/07/24 @ 08:00 by Jm Lynch MD) Atypical chest pain History of colon polyps Encounter for pre-operative examination HTN (hypertension) (Chronic) GERD (gastroesophageal reflux disease) (Chronic) HLD (hyperlipidemia) (Chronic) Cystitis (Acute) Hematuria (Acute) UTI (urinary tract infection) (Acute) Lumbar radiculopathy Dysuria Urinary frequency Other urethral stricture, female Encounter for pre-operative examination Urethral cancer Medical History Anxiety Depression GERD (gastroesophageal reflux disease) Hiatal hernia Hyperlipidemia Hypertension IBS (irritable bowel syndrome) Other urethral stricture, female Sleep apnea no longer using cpap Urethral cancer recently dx Surgical History History of bilateral tubal ligation History of cholecystectomy History of colonoscopy History of cystoscopy urethral dilation with TURBT, 05/24/21 [facility] History of tooth extraction History of total knee replacement bilat Hx of vaginal surgery cyst removal No pertinent past surgical history Social History Smoking Status: Never smoker Second Hand Exposure: No; Do You Dip or Chew Tobacco: No; Tobacco Cessation Education Requested by Patient: No Hx Alcohol Use: Yes Alcohol type: beer and hard liquor Hx Substance Use: No Preferred Language: Trinidadian Communication Ability: Effective Material Checker Required: No Beliefs That Will Affect Care: None Current Living Situation: Alone Other Information That Helps Us Care for You: No Feels Safe at Home: Yes Safety Concerns: Feels Safe At This Time Assistive Devices: Glasses Review of Systems Review of Systems: As per HPI, all other systems reviewed and negative Physical Exam Physical Exam: GENERAL: Slightly uncomfortable, slightly anxious, obese, no respiratory d istress SKIN: Normal color, warm HEENT: Bespectacled, pink palpebral conjunctivae, no ptosis, dry buccal mucosa NECK : Supple, no tenderness CHEST : CTA, right chest wall tenderness HEART : RRR, no obvious murmurs ABDOMEN: Some distention, nontender EXTREMITIES : No LE swelling/tenderness, no other conspicuous deformities noted NEUROLOGIC : Coherent, flattened left nasolabial fold, MMTs BUE/BLE 4/5 Results & Data Results & Data Vital Signs (Past 12 Hours) Vital Signs Temp Pulse Pulse Resp BP BP Pulse Ox 04/06/24 22:00 75 20 126/74 96 04/06/24 20:50 77 04/06/24 20:30 98 04/06/24 20:30 76 20 159/110 H 98 04/06/24 20:30 04/06/24 18:37 36.6 C 71 20 158/79 H 97 O2 Del Method 04/06/24 22:00 Room Air 04/06/24 20:50 04/06/24 20:30 Room Air 04/06/24 20:30 Room Air 04/06/24 20:30 Room Air 04/06/24 18:37 Room Air Laboratory Results Laboratory Results WBC 6.80 K/ul (4.8-10.8) 04/06/24 18:41 RBC 4.49 M/uL (4.20-5.40) 04/06/24 18:41 Hgb 13.3 g/dl (12.0-16.0) 04/06/24 18:41 Hct 39.8 % (37.0-47.0) 04/06/24 18:41 MCV 88.6 fL (80.0-100.0) 04/06/24 18:41 MCH 29.6 pg (25.0-34.0) 04/06/24 18:41 MCHC 33.4 g/dL (32.0-36.0) 04/06/24 18:41 RDW Std Deviation 42.0 fL (36.4-46.3) 04/06/24 18:41 RDW Coeff of Zainab 12.9 % (11.5-14.5) 04/06/24 18:41 Plt Count 184 K/uL (130-400) 04/06/24 18:41 MPV 9.9 fL (9.4-12.4) 04/06/24 18:41 Immature Gran % (Auto) 0.4 % 04/06/24 18:41 Neut % (Auto) 82.3 % 04/06/24 18:41 Lymph % (Auto) 8.2 % 04/06/24 18:41 [place] % (Auto) 7.9 % 04/06/24 18:41 Eos % (Auto) 0.6 % 04/06/24 18:41 Baso % (Auto) 0.6 % 04/06/24 18:41 Neut # (Auto) 5.59 K/uL (1.40-6.50) 04/06/24 18:41 Lymph # (Auto) 0.56 K/uL (1.20-3.40) L 04/06/24 18:41 [place] # (Auto) 0.54 K/uL (0.11-0.59) 04/06/24 18:41 Eos # (Auto) 0.04 K/uL (0.00-0.50) 04/06/24 18:41 Baso # (Auto) 0.04 K/uL (0.00-0.20) 04/06/24 18:41 Immature Gran # (Auto) 0.03 K/uL (0.01-0.20) 04/06/24 18:41 ESR 27 mm/hr (0-30) 04/06/24 18:41 PT 9.9 Seconds (9.0-12.0) 04/06/24 18:41 INR 0.9 (0.9-1.1) 04/06/24 18:41 APTT 25 Seconds (21-31) 04/06/24 18:41 PTT Ratio 0.9 04/06/24 18:41 Sodium 137 mmol/L (136-145) 04/06/24 18:41 Potassium 4.1 mmol/L (3.5-5.1) 04/06/24 18:41 Chloride 104 mmol/L (98-107) 04/06/24 18:41 Carbon Dioxide 25 mmol/L (21-32) 04/06/24 18:41 Anion Gap 8 (3-11) 04/06/24 18:41 BUN 19 mg/dl (6-23) 04/06/24 18:41 Creatinine 0.99 mg/dl (0.6-1.2) 04/06/24 18:41 Est Cr Clr Drug Dosing 57.0 ml/min 04/06/24 18:41 Est GFR ( Amer) 65.5 ml/min 04/06/24 18:41 Est GFR (Non-Af Amer) 56.5 ml/min 04/06/24 18:41 BUN/Creatinine Ratio 19.2 (10-20) 04/06/24 18:41 Glucose 117 mg/dl (70-99(Fasting)) H 04/06/24 18:41 Calcium 9.4 mg/dl (8.6-10.3) 04/06/24 18:41 Magnesium 1.7 mg/dl (1.7-2.4) 04/06/24 18:41 Total Bilirubin 0.8 mg/dl (0.2-1.0) 04/06/24 18:41 AST 14 U/L (13-39) 04/06/24 18:41 ALT 9 U/L (7-52) 04/06/24 18:41 Alkaline Phosphatase 83 U/L (34-104) 04/06/24 18:41 Troponin I High Sens 3.4 pg/ml (0-14) 04/06/24 18:41 C-Reactive Protein 2.79 mg/dl (0-0.5) H 04/06/24 18:41 Total Protein 7.0 gm/dl (6.0-8.3) 04/06/24 18:41 Albumin 4.1 gm/dl (3.4-5.0) 04/06/24 18:41 Globulin 2.9 gm/dl (2.5-4.0) 07/30/24 18:41 Albumin/Globulin Ratio 1.4 (0.9-2) 04/06/24 18:41 CT head: No acute intracranial hemorrhage. No midline shift or mass effect. Diagnostic Findings Chest x-ray as per my interpretation no congestion EKG as per my interpretation :Rate 75, NSR, normal axis, nonspecific T wave abnormalities
[2024-04-06] MEDS ORDERED: PHARMACIST DISCHARGE MED REC CONSULT PRN (23:25)
[2024-04-06] MEDS ORDERED: PROMETHAZINE HCL 6.25 MG in SODIUM CHLORIDE 0.9% 50 ML IV PRN (23:28)
[2024-04-06] MEDS ORDERED: ACETAMINOPHEN 325 MG TAB PO PRN (23:28)
[2024-04-06] MEDS ORDERED: oxyCODONE HCL IR 5 MG TAB (IMMEDIATE RELEASE) PO PRN (23:28)
[2024-04-06] MEDS: KETOROLAC TROMETHAMINE 15 MG/ML VIAL IV ONE (23:54)
[2024-04-06] MEDS: SODIUM CHLORIDE 0.9% 1,000 ML IV ONE (23:57)
[2024-04-07] MEDS: OPTIRAY 320 125ml IV ONE (00:12)
--- OUTSIDE RECORDS SUMMARY | 2024-04-07 00:14 | External Medical Summary | Summary of Care ---
Author Name Unknown Organization [facility] Address [address] [facility] [place] [address] Phone [phone] Care Team Providers Care Corporate Specialist Name Role Phone Corey Quigley MD Primary Care Provider Reason for Visit * Reason Onset Date Comments Outpatient Testing 01/29/2024 Re: WatchPAT Encounter Details Date Type Department Care Team (Late st Contact Info) Description 01/29/2024 Telephone Sleep Disorders Ctr [facility] [address] [place] [phone] Yuridia Raman CRNP [address] [place] [address] Outpatient Testing (Re: WatchPAT) Allergies Active Allergy Reactions Criticality Noted Date Comments Atorvastatin Calcium Muscle pain 07/07/2006 Simvastatin 06/01/2010 Muscle weakness documented as of this encounter (statuses as of 02/04/2024) Medications Medication Sig Dispensed Refills Start Date End Date Status Nystatin powder Apply to affected area 1 Bottle 5 07/09/2017 Active Polyethylene Glycol 3350 17 GM/SCOOP Oral Powder (Miralax) TAKE 17GM DISSOLIVED IN WATER AND TAKE 0 TO 2 TIMES A DAY WITH GOAL OF HAVING ONE SOFT BM PER DAY 08/02/2021 Active Aspirin 81 MG Oral Tablet Delayed Release Take 1 Tablet by mouth in the morning. Active Ondansetron 4 MG Oral Tablet Disintegrating (Zofran) 07/10/2022 Active clonazePAM 0.5 MG Oral Tablet (KlonoPIN)Indication s:Panic attacks,Insomnia, unspecified type 1/2 tab at bedtime as needed 30 Tablet 11/27/2022 Active Atenolol 50 MG Oral Tablet (Tenormin) Take 0.5 Tablets by mouth in the morning. 45 Tablet 1 08/08/2023 Active FLUoxetine HCl 40 MG Oral Capsule (PROzac)Indications: Adjustment disorder with depressed mood Take 1 Capsule by mouth in the morning. 90 Capsule 1 08/08/2023 Active valACYclovir HCl 500 MG Oral Tablet (Valtrex)Indications :Herpes simplex virus infection take 1 tablet by mouth once daily TO PREVENT OUTBREAKS 90 Tablet 1 08/08/2023 Active Omeprazole 20 MG Oral Capsule Delayed Release (PriLOSEC)Indication s:Gastroesophageal reflux disease without esophagitis take 1 capsule by mouth once daily 1 HOUR PRIOR TO THE FIRST MEAL OF THE DAY 90 Capsule 3 08/08/2023 Active Rosuvastatin Calcium 10 MG Oral Tablet (Crestor)Indications :Dyslipidemia, goal LDL below 100 Take 1 Tablet by mouth in the morning. 90 Tablet 3 08/08/2023 Active Vitamin B-12 1000 MCG Oral Tablet (Cyanocobalamin)Patty cations:B12 deficiency Take 1 Tablet by mouth in the morning. 100 Tablet 2 08/08/2023 Active Loperamide HCl 2 MG Oral Capsule (Imodium)Indications :Diarrhea, unspecified type Take 1 Capsule by mouth 4 times a day as needed for Diarrhea. 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 LOC PRIM [id number] 10/17/2004 HTN, goal below 140/90 10/09/2001 Esophageal reflux 09/03/1999 ADJ DISORDER W/DEPRES MOOD 09/03/1999 Anxiety state 09/03/1999 documented as of this encounter (statuses as of 02/04/2024) Resolved Problems Problem Noted Date Diagnosed Date Resolved Date Prediabetes 12/23/2023 01/21/2024 Acute embolism and thrombosi s of unspecified deep veins of right lower extremity 10/25/202209/08 Restless legs syndrome (RLS) 11/19/2018 02/23/2019 Acute cholecystitis 05/28/2012 02/19/20 17 BCC, right upper lip 06/1612/12/2009 0 02/18/2017 Obesity, Class II, BMI 35-39 .9, isolated (see actual BMI) 12/04/2009 02/18/2017 Overview: Per Obesity Taxonomy Dyslipidemia, goal to be determined 08/23/2009 06/10/2012 Overview: Per Lipid Taxonomy. HSV (herpes simplex virus) infection 05/06/2006 01/11/2019 Overview: Type 2, buttock lesion Many years 2001 HSV culture positive. Mixed dyslipidemia 07/16/2005 12/ 9 Overview: Per Lipid Taxonomy. Urinary incontinence 03/15/2003 017 Overview: Declines surgery. Pessary was problematic. Tolerating. ICD-10 update of inactive term FAMILY HX-GI MALIGNANCY 04/20/200202/06 Menopause 04/20/2002 02/18/2017 Insomnia 12/10/2001 02/18/2017 Overview: ICD-10 update of inactive term ABDOMINAL PAIN, RIGHT LOWER QUADRANT 12/19/2000 02/18/2017 BACKACHE NOS 12/19/2000 02/18/2017 Sciatica 12/19/2000 02/18/2017 Hematuria 12/19/2000 02/18/2017 Overview: ICD-10 update of inactive term OVARIAN CYST NEC-NOS 12/19/2000 017 PLANTAR FIBROMATOSIS 05/23/2000 017 OBESITY, UNSPECIFIED 09/03/1999 010 Overview: Per Obesity Taxonomy documented as of this encounter (statuses as of 02/04/2024) Immunizations Name Administration Dates Next Due COVID-19 mRNA, LNP-s, No Pre serve, 2-Dose Series (Pfizer) 09/13/2021,11/20/2020,10/21/2020 H1N1 2009 Influenza, IM 09/27/2009 Pneumococcal Conjugate Vacc, 13 Valent (Prevnar) 07/09/2017 Pneumococcal Polysaccharide PPV23 (Pneumovax) 07/13/2018 Season Influenza, Cell Cultu re, 18+ Yrs, With Preserv (Flucelvax) 09/24/2013 Seasonal Influenza, PF, 6 M & above, IM , (FluLaval or Fluzone) 06/13/2020,07/16/2019,07/13/2018,110 09/2016 Seasonal Influenza, Quadriva lent Hd (Fluzone Hd) 05/30/2023,07/19/2022,08/09/2021 Seasonal Influenza, Quadriva lent, No Preserve, IM 08/12/2016 Seasonal Influenza, Split, I IV3, With Preserve, Inj 06/09/2014,06/10/2012,06/07/2011,06/09,09/27/2009,06/15/2008,07/13/20 07 TD, Preservative Free 08/17/2020 TDAP (age 11 and older)(Adacel) 06/01/2010 06/01/2020 Varicella Zoster Vaccine (Adult) 04/05/2015 documented as of this encounter Social History Tobacco Use Types Packs/Day Years Used Date Smoking Tobacco: Never Smokeless Tobacco: Never Alcohol Use Standard Drinks/Week Comments Yes 0 (1 standard drink = 0.6 oz pur e alcohol) Occasionally PHQ-2 Answer Date Recorded PHQ Adult Total Score 0 12/14/2021 Hunger Vital Sign Answer Date Recorded Within the past 12 months, y ou worried that your food would run out before you got the money to buy more. Never true 10/25/19 23 Within the past 12 months, t he food you bought just didn't last and you didn't have money to get more. Never true 10/25/2022 Sex and Gender Information Value Date Recorded Sex Assigned at Female 03/16/2019 9:53 AM EDT Gender Identity Female 03/16/2019 9:53 AM EDT Sexual Orientation Not on file Job Start Date Occupation Industry Not on file Not on file Not on file documented as of this encounter Miscellaneous Notes * Telephone Encounter - Man Last OSA - 02/04/2024 9:23 AM EDT HST arranged for 04/19 * Telephone Encounter - Giulia Crisostomo LPN - 02/03/2024 1:32 PM EDT I spoke with the pt and relayed Yuridia's recommendation. She is agreeable to this, and will be expecting scheduling to contact her to schedule. * Telephone Encounter - Yuridia Raman CRNP - 02/03/2024 8:09 AM EDT Using the other/older version of HSAT is appropriate. Order placed. Please notify and arrange scheduling. * Telephone Encounter - Giulia Crisostomo LPN - 01/29/2024 11:30 AM EDT The pt came in this morning for WatchPAT set up and instruction. She will not be able to have a WatchPAT-she is not tech savvy at all, and wasn't even able to get on WiFi, had no idea what her password was or what the ashlee store meant. Is HST appropriate for her? Please order if so, or advise. documented in this encounter Plan of Treatment Upcoming Encounters Date Type Department Care Team (Late st Contact Info) Description 04/19/2024 11:00 AM EDT PulmDiagnostic Sleep Lab [facility] [address] [facility] [place] [address] [place], Sleep Med Home Study [facility] [address] [facility] [place] [address] 06/24/2024 1:00 PM EDT Office Visit Family [facility] [address] [facility] [place] [phone] Corey Quigley MD [address] [place] [address] 01/13/2025 2:20 PM EDT Office Visit Dermatology, [place] [address] [place] [address] Bushra Alejandra PA-C [address] [place] [address] [place] [address] Scheduled Orders Name Type Priority Associated Diagnoses Orde r Schedule SLEEP TEST W/ TYPE 3 PORTABLE MONITOR, 4 CHANNEL; AT HOME Procedures Routine BYRON (obstructive sleep apnea) HTN, goal below 140/90 BMI 34.0-34.9,adult Ordered: 02/03/2024 Health Maintenance Due Date Last Done Comments Albumin/Creatinine Ratio 1968 Cologuard 1995 Fecal Occult Blood Test 1995 Zoster Vaccines (2 of 3) 05/31/2015 04/05/2015 Depression Screening 12/14/2022 12/14/2021 COVID-19 Vaccine ( season) 2023 09/13/2021, 11/20/2020, 10/21/2020 Mammogram 05/21/2024 05/21/2023, 04/09, 05/01/2022, Additional history exists GFR 07/16/2024 07/16/2023, 10/2021, 08/02/2021, Additional history exists Sigmoidoscopy 07/30/2026 07/30/2021 DXA Scan 05/16/2027 05/16/2020, 04/0 10/2012, 11/02/2007, Additional history exists Lipid Panel 07/16/2028 07/16/2023, 07/0 04/2021, 09/30/2019, Additional history exists DTaP,Tdap,and Td Vaccines (3 - Td or Tdap) 08/17/2030 08/17/2020, 06/01/2010, 04/08/2003 Colonoscopy 06/20/2031 06/20/2021, 06/08, 02/02/2016, Additional history exists Colorectal Cancer Screening 06/20/2031 Pneumococcal Vaccine: 65+ Years Completed 07/13/2018, 07/09/2017, 04/20/2002 Influenza Vaccine (FLU shot) Completed , 07/19/2022, 08/09/2021, Additional history exists GARDASIL-HPV IMMUNIZATION SERIES Aged Out No longer eligible based on patient's age to complete this topic Hepatitis B Aged Out No longer eligi ble based on patient's age to complete this topic MENINGOCOCCAL (MENACTRA/MENVEO) Aged Out No longer eligible based on patient's age to complete this topic documented as of this encounter Medical Devices Not on filedocumented as of this encounter Visit Diagnoses Diagnosis BYRON (obstructive sleep apnea)- Primary Obstructive sleep apnea (adult) (pediatric) HTN, goal below 140/90 Unspecified essential hypertension BMI 34.0-34.9,adult Body Mass Index 34.0-34.9, adult documented in this encounter Care Teams Corporate Specialist Relationship Specialty Start Date End Date Corey Quigley MD [address] [place] [address] PCP - General 11/04/02 documented as of this encounter
--- OUTSIDE RECORDS SUMMARY | 2024-04-07 00:14 | External Medical Summary | Summary of Care ---
Author Name Unknown Organization [facility] Address [address] [facility] [place] [address] Phone [phone] Care Team Providers Care Ophthalmic Medical Technologist Name Role Phone Alden Quigley MD Primary Care Provider Reason for Visit * Reason Comments eRx-Medication Refill Encounter Details Date Type Department Care Team (Late st Contact Info) Description 03/29/2024 Refill [facility] [address] [place] [address] Alden Quigley MD [address] [place] [address] Allergies Active Allergy Reactions Criticality Noted Date Comments Atorvastatin Calcium Muscle pain 07/07/2006 Simvastatin 06/01/2010 Muscle weakness documented as of this encounter (statuses as of 03/29/2024) Medications Medication Sig Dispensed Refills Start Date End Date Status Nystatin powder Apply to affected area 1 Bottle 5 7 Active Polyethylene Glycol 3350 17 GM/SCOOP Oral Powder (Miralax) TAKE 17GM DISSOLIVED IN WATER AND TAKE 0 TO 2 TIMES A DAY WITH GOAL OF HAVING ONE SOFT BM PER DAY 1 Active Aspirin 81 MG Oral Tablet Delayed Release Take 1 Tablet by mouth in the morning. Active Ondansetron 4 MG Oral Tablet Disintegrating (Zofran) 2 Active clonazePAM 0.5 MG Oral Tablet (KlonoPIN)Indicatio ns:Panic attacks,Insomnia, unspecified type 1/2 tab at bedtime as needed 30 Tablet 3 Active FLUoxetine HCl 40 MG Oral Capsule (PROzac)Indications :Adjustment disorder with depressed mood Take 1 Capsule by mouth in the morning. 90 Capsule 1 3 Active valACYclovir HCl 500 MG Oral Tablet (Valtrex)Indication s:Herpes simplex virus infection take 1 tablet by mouth once daily TO PREVENT OUTBREAKS 90 Tablet 1 3 Active Omeprazole 20 MG Oral Capsule Delayed Release (PriLOSEC)Indicatio ns:Gastroesophageal reflux disease without esophagitis take 1 capsule by mouth once daily 1 HOUR PRIOR TO THE FIRST MEAL OF THE DAY 90 Capsule 3 3 Active Rosuvastatin Calcium 10 MG Oral Tablet (Crestor)Indication s:Dyslipidemia, goal LDL below 100 Take 1 Tablet by mouth in the morning. 90 Tablet 3 3 Active Vitamin B-12 1000 MCG Oral Tablet (Cyanocobalamin)Ind ications:B12 deficiency Take 1 Tablet by mouth in the morning. 100 Tablet 2 3 Active Loperamide HCl 2 MG Oral Capsule (Imodium)Indication s:Diarrhea, unspecified type Take 1 Capsule by mouth 4 times a day as needed for Diarrhea. 30 Capsule 1 4 Active Additional Information Patient not taking.Reported on 12/23/2023 Atenolol 50 MG Oral Tablet (Tenormin) TAKE ONE-HALF TABLETS BY MOUTH IN THE MORNING 45 Tablet 1 4 Active Atenolol 50 MG Oral Tablet (Tenormin) Take 0.5 Tablets by mouth in the morning. 45 Tablet 1 3 03/29/20 24 Discontinued documented as of this encounter (statuses as of 03/29/2024) Active Problems Problem Noted Date Diagnosed Date [...] brochure offered , patient declined. LOC PRIM [id number] 10/17/2004 HTN, goal below 140/90 10/09/2001 Esophageal reflux 09/03/1999 ADJ DISORDER W/DEPRES MOOD 09/03/1999 Anxiety state 09/03/1999 documented as of this encounter (statuses as of 03/29/2024) Resolved Problems Problem Noted Date Diagnosed Date [...] as of this encounter (statuses as of 03/29/2024) Immunizations Name Administration Dates Next Due COVID-19 mRNA, LNP-s, No Pre serve, 2-Dose Series (Pfizer) 09/13/2021,11/20/2020,10/21/2020 H1N1 2009 Influenza, IM 09/27/2009 Pneumococcal Conjugate Vacc, 13 Valent (Prevnar) 07/09/2017 Pneumococcal Polysaccharide PPV23 (Pneumovax) 07/13/2018 Season Influenza, Cell Cultu re, 18+ Yrs, With Preserv (Flucelvax) 09/24/2013 Seasonal Influenza, PF, 6 M & above, IM , (FluLaval or Fluzone) 06/13/2020,07/16/2019,07/13/2018,11/0 09/2016 Seasonal Influenza, Quadriva lent Hd (Fluzone Hd) 05/30/2023,07/19/2022,08/09/2021 Seasonal Influenza, Quadriva lent, No Preserve, IM 08/12/2016 Seasonal Influenza, Split, I IV3, With Preserve, Inj 06/09/2014,06/10/2012,06/07/2011,06/09,09/27/2009,06/15/2008,07/13/20 07 TD, Preservative Free 08/17/2020 TDAP, Age 7 and older, IM (Adacel) 06/01/2010 06/01/2020 Varicella Zoster Vaccine (Adult) 04/05/2015 [...] encounter Miscellaneous Notes * Telephone Encounter - Beba Noyola RPh - 03/29/2024 7:27 PM EDTSigned Prescriptions: Disp Refills Atenolol 50 MG Oral Tablet (Tenormin) 45 Tab*1 Sig: TAKE ONE-HALF TABLETS BY MOUTH IN THE MORNINGAuthorizing Provider: ALDEN QUIGLEY User: BEBA NOYOLA documented in this encounter Plan of Treatment Upcoming Encounters Date Type Department Care Team (Late st Contact Info) Description 04/19/2024 11:00 AM EDT PulmDiagnostic Sleep Lab [facility] [address] [place] [phone] [place] [facility] Home Study [facility] [address] [place] [address] 06/24/2024 1:00 PM EDT Office Visit [facility] [address] [place] [facility] [place] [phone] Alden Quigley MD [address] [place] [address] 01/13/2025 2:20 PM EDT [place] [address] [facility] [place] [address] Bushra Alejandra PA-C [address] [place] [address] [place] [address] Health Maintenance Due Date Last Done Comments Albumin/Creatinine Ratio 1968 Cologuard 1995 Fecal Occult Blood Test 1995 Zoster Vaccines (2 of 3) 05/31/2015 04/05/2015 Depression Screening 12/14/2022 12/14/2021 COVID-19 Vaccine ( season) 2023 09/13/2021, 11/20/2020, 10/21/2020 Influenza Vaccine (FLU shot) (#1) 2024 05/30/2023, 07/19/2022, 08/09/2021, Additional history exists Mammogram 05/21/2024 05/21/2023, 05/09, 05/01/2022, Additional history exists GFR 07/16/2024 07/16/2023, 10/2021, 08/02/2021, Additional history exists Sigmoidoscopy 07/30/2026 07/30/2021 DXA Scan 05/16/2027 05/16/2020, 04/0 10/2012, 11/02/2007, Additional history exists Lipid Panel 07/16/2028 07/16/2023, 07/0 04/2021, 09/30/2019, Additional history exists DTaP,Tdap,and Td Vaccines (3 - Td or Tdap) 08/17/2030 08/17/2020, 06/01/2010, 04/08/2003 Colonoscopy 06/20/2031 06/20/2021, 06/08, 02/02/2016, Additional history exists Colorectal Cancer Screening 06/20/2031 *BASELINE EKG FOR HTN Completed 01/07/2017 Pneumococcal Vaccine: 65+ Years Completed 07/13/2018, 07/09/2017, 04/20/2002 HPV (Gardasil) Vaccine Aged Out No lo nger eligible based on patient's age to complete this topic Hepatitis B Vaccine Aged Out No longe r eligible based on patient's age to complete this topic MENINGOCOCCAL (MENACTRA/MENVEO) Aged Out No longer eligible based on patient's age to complete this topic documented as of this encounter Medical Devices Not on filedocumented as of this encounter Care Teams Ophthalmic Medical Technologist Relationship Specialty Start Date End Date Alden Quigley MD [address] [place] [address] PCP - General 11/04/02 documented as of this encounter
--- OUTSIDE RECORDS SUMMARY | 2024-04-07 00:14 | External Medical Summary | Summary of Care ---
Author Name Unknown Organization [facility] Address [address] [place] [address] Phone [phone] Care Team Providers Care Taxation Consultant Name Role Phone Corey Quigley MD Primary Care Provider Encounter Details Date Type Department Care Team (Late st Contact Info) Description 10/15/2023 Telephone [facility] [address] [place] [address] Corey Quigley MD [address] [place] [address] Allergies Active Allergy Reactions Criticality Noted Date Comments Atorvastatin Calcium Muscle pain 07/07/2006 Simvastatin 06/01/2010 Muscle weakness documented as of this encounter (statuses as of 01/14/2024) Medications Medication Sig Dispensed Refills Start Date End Date Status Nystatin powder Apply to affected area 1 Bottle 5 07/09/2017 Active Polyethylene Glycol 3350 17 GM/SCOOP Oral Powder (Miralax) TAKE 17GM DISSOLIVED IN WATER AND TAKE 0 TO 2 TIMES A DAY WITH GOAL OF HAVING ONE SOFT BM PER DAY 0 08/02/2021 Active Aspirin 81 MG Oral Tablet Delayed Release Take 1 Tablet by mouth in the morning. 0 Active Ondansetron 4 MG Oral Tablet Disintegrating (Zofran) 0 07/10/2022 Active clonazePAM 0.5 MG Oral Tablet (KlonoPIN)Indicatio ns:Panic attacks,Insomnia, unspecified type 1/2 tab at bedtime as needed 30 Tablet 0 11/27/2022 Active Atenolol 50 MG Oral Tablet [...] Additional Information Patient not taking.Reported on 12/23/2023 Fluorouracil 5 % External Cream (Efudex)Indications :Actinic keratosis Apply thin layer to entire face (except chin) 2x daily for 3 weeks and then return to office when treatment is completed. 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 LOC PRIM [id number] 10/17/2004 HTN, goal below 140/90 10/09/2001 Esophageal reflux 09/03/1999 ADJ DISORDER W/DEPRES MOOD 09/03/1999 Anxiety state 09/03/1999 documented as of this encounter (statuses as of 01/14/2024) Resolved Problems Problem Noted Date Diagnosed Date Resolved Date Acute embolism and thrombosi s of unspecified [...] as of this encounter (statuses as of 01/14/2024) Immunizations Name Administration Dates Next Due COVID-19 mRNA, LNP-s, No Pre serve, 2-Dose Series (Heroic) 09/13/2021,11/20/2020,10/21/2020 H1N1 2009 Influenza, IM 09/27/2009 Pneumococcal Conjugate Vacc, 13 Valent (Prevnar) 07/09/2017 Pneumococcal Polysaccharide PPV23 (Pneumovax) 07/13/2018 Season Influenza, Cell Cultu re, 18+ Yrs, With Preserv (Flucelvax) 09/24/2013 Seasonal Influenza, PF, 6 M & above, IM , (FluLaval or Fluzone) 06/13/2020,07/16/2019,07/13/2018,1109/2016 Seasonal Influenza, Quadriva lent Hd (Fluzone Hd) [...] encounter Miscellaneous Notes * Telephone Encounter - Peg Posey LPN - 10/16/2023 1:51 PM EST Efudex cream ordered by derm * Telephone Encounter - Corey Quigley MD - 10/15/2023 1:41 PM EST I do not know what this means. Is this a dermatology issue? * Telephone Encounter - Adalgisa Jeff CCMA - 10/15/2023 12:14 PM EST Dermatology called and states pt needs withdrawal of the Quantity Limit: 40 Quantity per 30 day for Fluorouracil 5 % External Cream (Efudex) Please advise. documented in this encounter Plan of Treatment Upcoming Encounters Date Type Department Care Team (Late st Contact Info) Description 01/29/2024 11:30 AM EDT PulmDiagnostic Sleep Lab [facility] [address] [place] [address] [place] [facility] Home Study [facility] [address] [place] [address] 06/24/2024 1:00 PM EDT Office Visit [facility] [address] [place] [facility] [place] [phone] Corey Quigley MD [address] [place] [facility] [address] 01/13/2025 2:20 PM EDT Office Visit Dermatology, [place] [address] [place] [facility] [address] Bushra Alejandra, RICHARD [address] [place] [address] [place] [address] Health Maintenance Due Date Last Done Comments Albumin/Creatinine Ratio 1968 Cologuard 1995 Fecal Occult Blood Test 1995 Zoster Vaccines (2 of 3) 05/31/2015 04/05/2015 Depression Screening 12/14/2022 12/14/2021 COVID-19 Vaccine ( season) 2023 09/13/2021, 11/20/2020, 10/21/2020 Mammogram 05/21/2024 05/21/2023, 04/09, 05/01/2022, Additional history exists GFR 07/16/2024 07/16/2023, 10/2021, 08/02/2021, Additional history exists HbA1c 12/22/2024 12/23/2023, 04/2023, 10/08/2011 Sigmoidoscopy 07/30/2026 07/30/2021 DXA Scan 05/16/2027 05/16/2020, 0 10/2012, 11/02/2007, Additional history exists Lipid Panel 07/16/2028 07/16/2023, 04/2021, 09/30/2019, Additional history exists DTaP,Tdap,and Td [...] filedocumented as of this encounter Care Teams Taxation Consultant Relationship Specialty Start Date End Date Corey Quigley MD [address] [place] [address] PCP - General 11/04/02 documented as of this encounter
--- OUTSIDE RECORDS SUMMARY | 2024-04-07 00:15 | External Medical Summary | Summary of Care ---
Author Name Unknown Organization [facility] Address [address] [facility] [place] [address] Phone [phone] Care Team Providers Care Financial Management Name Role Phone Corey Quigley MD Primary Care Provider Reason for Visit * Reason Comments Outpatient Testing Encounter Details Date Type Department Care Team (Late st Contact Info) Description 12/23/2023 3:00 PM EDT Laboratory Laboratory, [place] [address] [place] [address] [place] [address] [place] [address] Low vitamin B12 level; Prediabetes Allergies Active Allergy Reactions Criticality Noted Date Comments Atorvastatin Calcium Muscle pain 07/07/2006 Simvastatin 06/01/2010 Muscle weakness documented as of this encounter (statuses as of 12/23/2023) Medications Medication Sig Dispensed Refills Start Date [...] as of this encounter (statuses as of 12/23/2023) Active Problems Problem Noted Date Diagnosed Date [...] brochure offered , patient declined. LOC PRIM [id number] 10/17/2004 HTN, goal below 140/90 10/09/2001 Esophageal reflux 09/03/1999 ADJ DISORDER W/DEPRES MOOD 09/03/1999 Anxiety state 09/03/1999 documented as of this encounter (statuses as of 12/23/2023) Resolved Problems Problem Noted Date Diagnosed Date [...] 2001 HSV culture positive. Mixed dyslipidemia 07/16/2005 9 Overview: Per Lipid Taxonomy. Urinary incontinence [...] as of this encounter (statuses as of 12/23/2023) Immunizations Name Administration Dates Next Due COVID-19 [...] on file documented as of this encounter Plan of Treatment Upcoming Encounters Date Type Department Care Team (Late st Contact Info) Description 01/29/2024 11:30 AM EDT PulmDiagnostic Sleep Lab [facility] [address] [facility] [place] [address] [place], Sleep Med Home Study [facility] [[email or web address]] [address] [facility] [place] [address] 06/24/2024 1:00 PM EDT Office Visit [place] [address] [place] [phone] Corey Quigley MD [address] [place] [address] 01/13/2025 2:20 PM EDT Office Visit Dermatology, [place] [address] [place] [address] Bushra Alejandra PAArie [address] [place] [address] [place] [id number] Pending Results Name Type Priority Associated Diagnoses Date /Time VITAMIN B12 Lab Routine Low vitamin B12 level 12/23/2023 2:38 PM EDT HEMOGLOBIN A1C Lab Routine Prediabetes 12/23/2023 2:38 PM EDT Health Maintenance Due Date Last Done Comments Albumin/Creatinine Ratio 1968 Cologuard 1995 Fecal Occult Blood Test 1995 Zoster Vaccines (2 of 3) 05/31/2015 04/05/2015 Depression Screening 12/14/2022 12/14/2021 COVID-19 Vaccine ( season) 2023 09/13/2021, 11/20/2020, 10/21/2020 Mammogram 05/21/2024 05/21/2023, 04/09, 05/01/2022, Additional history exists GFR 07/16/2024 07/16/2023, 10/2021, 08/02/2021, Additional history exists HbA1c 07/16/2024 07/16/2023, 10/08/2011 Sigmoidoscopy 07/30/2026 07/30/2021 DXA Scan 05/16/2027 05/16/2020, 040 10/2012, 11/02/2007, Additional history exists Lipid Panel 07/16/2028 07/16/2023, 070 04/2021, 09/30/2019, Additional history exists DTaP,Tdap,and Td [...] as of this encounter Visit Diagnoses Diagnosis Low vitamin B12 level Other B-complex deficiencies Prediabetes Other abnormal glucose documented in this encounter Care Teams Financial Management Relationship Specialty Start Date End Date Corey Quigley MD [address] [place] [address] PCP - General 11/04/02 documented as of this encounter
--- OUTSIDE RECORDS SUMMARY | 2024-04-07 00:15 | External Medical Summary | Summary of Care ---
Author Name Unknown Organization [facility] Address [address] [facility] [place] [address] Phone [phone] Care Team Providers Care Glazier Helper Name Role Phone Corey Quigley MD Primary Care Provider Reason for Visit * Reason Comments Follow Up Efudex, stopped this AM Encounter Details Date Type Department Care Team (Late st Contact Info) Description 11/20/2023 11:40 AM EDT Office Visit Dermatology[address] [address] Bushra Alejandra PA-C [address] [place] [address] [place] [phone] Irritant contact dermatitis due to drug in contact with skin*; Hx of nonmelanoma skin cancer; Actinic keratosis Allergies Active Allergy Reactions Criticality Noted Date Comments Atorvastatin Calcium Muscle pain 07/07/2006 Simvastatin 06/01/2010 Muscle weakness documented as of this encounter (statuses as of 11/20/2023) Medications Medication Sig Dispensed Refills Start Date [...] for Diarrhea. 30 Capsule 1 09/17/2023 Active Fluorouracil 5 % External Cream (Efudex)Indications :Actinic keratosis Apply thin layer to entire face (except chin) 2x daily for 3 weeks and then return to office when treatment is completed. 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 LOC PRIM [id number] 10/17/2004 HTN, goal below 140/90 10/09/2001 Esophageal reflux 09/03/1999 ADJ DISORDER W/DEPRES MOOD 09/03/1999 Anxiety state 09/03/1999 documented as of this encounter (statuses as of 11/20/2023) Resolved Problems Problem Noted Date Diagnosed Date [...] as of this encounter (statuses as of 11/20/2023) Immunizations Name Administration Dates Next Due COVID-19 mRNA, LNP-s, No Pre serve, 2-Dose Series (PayOrPass) 09/13/2021,11/20/2020,10/21/2020 H1N1 2009 Influenza, IM 09/27/2009 Pneumococcal Conjugate Vacc, 13 Valent (Prevnar) 07/09/2017 Pneumococcal Polysaccharide PPV23 (Pneumovax) 07/13/2018 Season Influenza, Cell Cultu re, 18+ Yrs, With Preserv (Flucelvax) 09/24/2013 Seasonal Influenza, PF, 6 M & above, IM , (FluLaval or Fluzone) 06/13/2020,07/16/2019,07/13/2018,09/2016 Seasonal Influenza, Quadriva lent Hd (Fluzone Hd) [...] on file documented as of this encounter Patient Instructions * Patient Instructions* Bushra Alejandra PA-C - 11/20/2023 11:46 AM EDT SUNSCREEN USE AND SUN PROTECTION: 1. The best protection is sun avoidance. Seek shade if you can, especially between 10am to 4pm (peak sun hours). 2. Use sunscreen with an SPF (Sun Protection Factor - the number on most sunscreen bottles) of 30 or more that protects from Ultraviolet A (UVA) and Ultraviolet B (UVB) wavelength light (strongly recommend SPF 50). This is referred to as broad spectrum sun protection because it protects from most wa velengths in both spectrums of UVA and UVB light. Unfortunately, even though the protection is broad it is not complete, therefore making sun avoidance the best protection. UVB and UVA have both beenimplicated in causing skin cancers. Older sunscreens only protected from UVB and sunscreens with added UVA protection should contain Titanium dioxide, Zinc oxide, or Avobenzone. Other oil free, non-comedogenic lotion with SPF 30 or greater is fine. 3. Use sun protection if outside for 15 minutes or more. Apply 20-30 minutes before going out and reapply every 1-2 hours. No sunscreen is truly water ''proof'' and it will wash away with sweat, swimming and rubbing. 4. Wear tightly woven, loose fitting (cooler) long sleeved clothing, UV-blocking sun glasses (eyes need protection as well) and wide-brimmed hatwear (no straw hats with holes because light still getsthrough). Strongly recommended *Neutrogena Pure and Free Baby SPF 60 (have separate face and body lotions) orCeraVe AM facial lotion (with SPF 30). If looking for non toxic alternatives-look for non-alvaro particle zinc. Product examples; Think sport, Think baby, Kwaku, Babo botanicals, Alba botanicals, [place] baby. "Baby" products can be used for all ages. documented in this encounter Progress Notes * Bushra Alejandra PA-C - 11/20/2023 11:40 AM EDT SUBJECTIVE: History of Present Illness: Diana Angel is a 73 year old female seen today for follow up of Efudex treatment. Last Office/Telemedicine Visit: 10/07/2023 Last attempted treatments include: Efudex 5% cream BID x 3 weeks to face (used this AM) Full skin exam 10/01 + itch, + burn, + sting. No flu like or other systemic symptoms. REVIEW OF SYSTEMS: SKIN: No other new or changing moles. HEME/LYMPH: No new or enlarging lumps or bumps. CONSTITUTIONAL: No nausea, vomiting, fevers, chills, diarrhea. No recent unintended weight loss, night sweats, appetite or malaise. RESP: negative MSK/EXT: Negative or as per HPI GI: negative CV: Negative or as per HPI Rest of systems are negative or as per HPI SKIN CANCER HX: basal cell carcinoma (R upper lip 06/13), actinic keratoses (PDT and Efudex face 11/29) Reviewed all [facility] Dermatology pathology reports and clinic notes as well as those sent by referring provider prior to seeing pt. MEDICA TIONS: Current Outpatient Medications Medication Sig Dispense Refill Nystatin powder Apply to affected area 1 Bottle 5 Polyethylene Glycol 3350 17 GM/SCOOP Oral Powder (Miralax) TAKE 17GM DISSOLIVED IN WATER AND TAKE 0TO 2 TIMES A DAY WITH GOAL OF HAVING ONE SOFT BM PER DAY Aspirin 81 MG Oral Tablet Delayed Release Take 1 Tablet by mouth in the morning. Ondansetron 4 MG Oral Tablet Disintegrating (Zofran) clonazePAM 0.5 MG Oral Tablet (KlonoPIN) 1/2 tab at bedtime as needed 30 Tablet 0 Atenolol 50 MG Oral Tablet (Tenormin) Take 0.5 Tablets by mouth in the morning. 45 Tablet 1 FLUoxetine HCl 40 MG Oral Capsule (PROzac) Take 1 Capsule by mouth in the morning. 90 Capsule 1 valACYclovir HCl 500 MG Oral Tablet (Valtrex) take 1 tablet by mouth once daily TO PREVENT OUTBREAKS 90 Tablet 1 Omeprazole 20 MG Oral Capsule Delayed Release (PriLOSEC) take 1 capsule by mouth once daily 1 HOUR PRIOR TO THE FIRST MEAL OF THE DAY 90 Capsule 3 Rosuvastatin Calcium 10 MG Oral Tablet (Crestor) Take 1 Tablet by mouth in the morning. 90 Tablet 3 Vitamin B-12 1000 MCG Oral Tablet (Cyanocobalamin) Take 1 Tablet by mouth in the morning. 100 Tablet 2 Loperamide HCl 2 MG Oral Capsule (Imodium) Take 1 Capsule by mouth 4 times a day as needed for Diarrhea. 30 Capsule 1 Fluorouracil 5 % External Cream (Efudex) Apply thin layer to entire face (except chin) 2x daily for3 weeks and then return to office when treatment is completed. 40 g 1 No current facility-administered medications for this visit. ALLERG IES: Lipitor [atorvastatin calcium] and Zocor [simvastatin] OBJECT SYLWIA: GEN: alert, no distress, appears oriented, pleasant, and cooperative. SKIN: Detailed exam of face including lids and lips completed: 1. Face-Scattered erythematous scaly papules, few with hemorrhagic crusts. ASSESS MENT/PLAN: 1. Irritant contact dermatitis secondary to Efudex for actinic keratoses on face-D/c medication andstart applying vaseline several times daily to treatment areas to keep them moist. Wear wide brim hat and sunscreen with at least 50 SPF. Patient educated that redness will start to improve/resolve in months. Patient alone today. Photo(s) of #1 taken, pt verbally consented to having photo(s) taken. Follow-up: 10/02 for full skin exam Applicable photos (if any) and chart reviewed by Dr. Jhoan Gill. Presumed diagnoses, expected natural histories, and management options discussed with the patient at length. Questions were addressed and anticipatory guidance provided. They were instructed to contact me if additional questions, concerns, or problems develop in the interim. -There were no barriers to learning and no other pain was related to today's visit. The patient and/or person accompanying patient demonstrates understanding of the visit and treatment. Bushra Alejandra PA-C 11/20/2023 11:15 AM documented in this encounter Nursing Notes * Luisa Dominguez LPN - 11/20/2023 11:35 AM EDT Patient identified by full name and date of . Chief Complaint Patient presents with Follow Up Efudex, stopped this AM documented in this encounter Plan of Treatment Upcoming Encounters Date Type Department Care Team (Late st Contact Info) Description 12/03/2023 10:30 AM EDT Office Visit [facility] [address] [place] [phone] Yuridia Raman CRNP [address] [place] [address] 12/03/2023 2:20 PM EDT [facility] [place] [address] [facility] [phone] Corey Quigley MD [address] [place] [address] 01/13/2025 2:20 PM EDT [place] [address] [place] [address] Bushra Alejandra PA-C [address] [place] [address] [place] [address] Health Maintenance Due Date Last Done Comments [...] as of this encounter Visit Diagnoses Diagnosis Irritant contact dermatitis due to drug in contact with skin- Primary Contact dermatitis and other eczema due to drugs and medicines in contact with skin Hx of nonmelanoma skin cancer Personal history of other malignant neoplasm of skin Actinic keratosis documented in this encounter Care Teams Glazier Helper Relationship Specialty Start Date End Date Corey Quigley MD [address] [place] [address] PCP - General 11/04/02 documented as of this encounter
--- OUTSIDE RECORDS SUMMARY | 2024-04-07 00:15 | External Medical Summary ---
Author Name Unknown Address Unknown Organization [facility] - [address] [place] [id number] Laboratory Report Ordering Provider Test Date Status BALTAZAR RUANO 12/23/2023 14:38:29 Final Observation Date Value Abnormality Reference (Units ) Status Vitamin B12 12/23/2023 14:38:29 [phone] (pg/mL) Final Performing Location [facility] - [address] [place] [address]
--- OUTSIDE RECORDS SUMMARY | 2024-04-07 00:15 | External Medical Summary | Summary of Care ---
Author Name Unknown Organization [facility] Address [address] [place] [address] Phone [phone] Care Team Providers Care [place] Machine Operator Name Role Phone Corey Quigley MD Primary Care Provider [phone] Reason for Visit * Reason Comments Follow Up Sleep Apnea * Evaluate & Treat - Unlimited Visits (Within 30 days (routine)) - Closed Specialty Diagnoses / Procedures Referred By Contbenjamin t Referred To Contact Sleep Medicine / Sleep Disorders Diagnoses BYRON (obstructive sleep apnea) Corey Quigley MD [address] [place] [address] Referral ID Status Reason Start Date Expiration Date V isits Requested Visits Authorized [id number] Closed Specialty Services Required 05/30/2023 2 2 Encounter Details Date Type Department Care Team (Late st Contact Info) Description 12/03/2023 10:30 AM EDT Office Visit Sleep Disorders Ctr [facility] [address] [place] [phone] Yuridia Aguirre CRNP [address] [place] [phone] BYRON (obstructive sleep apnea)*; HTN, goal below 140/90; BMI 34.0-34.9,adult Allergies Active Allergy Reactions Criticality Noted Date Comments Atorvastatin Calcium Muscle pain 07/07/2006 Simvastatin 06/01/2010 Muscle weakness documented as of this encounter (statuses as of 12/03/2023) Medications Medication Sig Dispensed Refills Start Date [...] 07/10/2022 Active clonazePAM 0.5 MG Oral Tablet (KlonoPIN)Indications :Panic attacks,Insomnia, unspecified type 1/2 tab at bedtime as needed 30 Tablet 0 11/27/2022 Active Atenolol 50 MG Oral Tablet (Tenormin) Take 0.5 Tablets by mouth in the morning. 45 Tablet 1 08/08/2023 Active FLUoxetine HCl 40 MG Oral Capsule (PROzac)Indications:A djustment disorder with depressed mood Take 1 Capsule by mouth in the morning. 90 Capsule 1 08/08/2023 Active valACYclovir HCl 500 MG Oral Tablet (Valtrex)Indications: Herpes simplex virus infection take 1 tablet by mouth once daily TO PREVENT OUTBREAKS 90 Tablet 1 08/08/2023 Active Omeprazole 20 MG Oral Capsule Delayed Release (PriLOSEC)Indications :Gastroesophageal reflux disease without esophagitis take 1 capsule by mouth once daily 1 HOUR PRIOR TO THE FIRST MEAL OF THE DAY 90 Capsule 3 08/08/2023 Active Rosuvastatin Calcium 10 MG Oral Tablet (Crestor)Indications: Dyslipidemia, goal LDL below 100 Take 1 Tablet by mouth in the morning. 90 Tablet 3 08/08/2023 Active Vitamin B-12 1000 MCG Oral Tablet (Cyanocobalamin)Indic ations:B12 deficiency Take 1 Tablet by mouth in the morning. 100 Tablet 2 08/08/2023 Active Loperamide HCl 2 MG Oral Capsule (Imodium)Indications: Diarrhea, unspecified type Take 1 Capsule by mouth 4 times a day as needed for Diarrhea. 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 LOC PRIM [id number] 10/17/2004 HTN, goal below 140/90 10/09/2001 Esophageal reflux 09/03/1999 ADJ DISORDER W/DEPRES MOOD 09/03/1999 Anxiety state 09/03/1999 documented as of this encounter (statuses as of 12/03/2023) Resolved Problems Problem Noted Date Diagnosed Date [...] Overview: Type 2, buttock lesion Many years 2002 HSV culture positive. Mixed dyslipidemia 07/16/2005 9 [...] as of this encounter (statuses as of 12/03/2023) Immunizations Name Administration Dates Next Due COVID-19 mRNA, LNP-s, No Pre serve, 2-Dose Series (Neronote) 09/13/2021,11/20/2020,10/21/2020 H1N1 2009 Influenza, IM 09/27/2009 PPD 09/24/2001,09/22/2001 07/25/2002 Pneumococcal Conjugate Vacc, 13 Valent (Prevnar) 07/09/2017 Pneumococcal Polysaccharide PPV23 (Pneumovax) 07/13/2018,04/20/2002 Season Influenza, Cell Cultu re, 18+ Yrs, With Preserv (Flucelvax) 09/24/2013 Seasonal Influenza, PF, 6 M & above, IM , (FluLaval or Fluzone) 06/13/2020,07/16/2019,07/13/2018,1109/2016 Seasonal Influenza, Quadriva lent Hd (Fluzone Hd) 05/30/2023,07/19/2022,08/09/2021 Seasonal Influenza, Quadriva lent, No Preserve, IM 08/12/2016 Seasonal Influenza, Split, I IV3, With Preserve, Inj 06/09/2014,06/10/2012,06/07/2011,06/09,09/27/2009,06/15/2008,07/13/20 07,08/05/2005,07/28/2003,08/18/2002 TD - Tetanus/Diptheria (ADULT) 04/08/2003 TD, Preservative Free 08/17/2020 TDAP (age 11 [...] on file documented as of this encounter Last Filed Vital Signs Vital Sign Reading Time Taken Comments Blood Pressure 134/78 12/03/2023 10:10 AM EDT Pulse 59 12/03/2023 10:10 AM EDT Temperature 36.1 C (97 F) 12/03/2023 10:10 AM EDT Respiratory Rate 16 12/03/2023 10:10 AM EDT Oxygen Saturation 99% 12/03/2023 10:10 AM EDT Inhaled Oxygen Concentration - - Weight 91.2 kg (201 lb) 12/03/2023 10:10 AM EDT Height 162.6 cm (5' 4") 12/03/2023 10:10 AM EDT Body Mass Index 34.5 12/03/2023 10:10 AM EDT documented in this encounter Progress Notes * Yuridia Aguirre CRNP - 12/03/2023 10:32 AM EDT [facility] Diana Angel is a 73 year old female seen today for follow-up with history of BYRON, untreated. Initially presented with snoring, witnessed apnea, nocturnal DORIS, nocturia, RLS, daytime somnolence(ESS 7, FOSQ10 29). -Split PSG 10/2018 (wt 199 lb): AHI 24, PLMI 23, SpO2 <89% 1.5 minutes; nasal CPAP to 7 cwp, RvA0phpnm 89% -Doesn't care for chin strap -Stopped CPAP due to Jerel' recall Interim History: Received replacement CPAP from Jerel but hasn't used. Not comfortable with using it. Interested in other treatment options and recommendations. Weight is back up. Boyfriend reports loud snoring andpauses in breathing. Compliance Data: Report date ends 04/24/2021 Equipment: DME Provider: Navut Device: RightAnswers Settings: 9-12 cmH20 Interface Type: HEALTH ADMINISTRATOR [place] Sleepiness Scale Question 12/03/2023 10:13 AM EDT - Filed by Vonnie Baker LPN What is the chance you will doze off in the following situation? Sitting and reading No chance of dozing Watching TV No chance of dozing Sitting inactive in a public place, such as a theater or meeting No chance of dozing As a passenger in a car for an hour without a break No chance of dozing Lying down to rest in the afternoon when circumstances permit High chance of dozing When sitting and talking to someone No chance of dozing When sitting quietly after lunch without alcohol No chance of dozing In a car, while stopped for a few minutes in traffic No chance of dozing Score (range: 0 - 24) 3 Problem List: Patient Active Problem List Diagnosis Code Esophageal reflux K21.9 ADJ DISORDER W/DEPRES MOOD F43.21 Anxiety state F41.1 HTN, goal below 140/90 I10 LOC PRIM [id number] M17.10 ADVANCE DIRECTIVE INFORMATION Dyslipidemia, goal LDL below 100 E78.5 History of nonmelanoma skin cancer Z85.828 BYRON (obstructive sleep apnea) G47.33 Carcinoma of bladder (HCC) C67.9 Urethral carcinoma (HCC) C68.0 Hx of actinic keratosis Z87.2 Current Medications: Outpatient Medications Marked as Taking for the 12/03/23 encounter (Office Visit) with Yuridia Aguirre CRNP Medication Sig Loperamide HCl 2 MG Oral Capsule (Imodium) Take 1 Capsule by mouth 4 times a day as needed for Diarrhea. Atenolol 50 MG Oral Tablet (Tenormin) Take 0.5 Tablets by mouth in the morning. FLUoxetine HCl 40 MG Oral Capsule (PROzac) Take 1 Capsule by mouth in the morning. Omeprazole 20 MG Oral Capsule Delayed Release (PriLOSEC) take 1 capsule by mouth once daily 1 HOUR PRIOR TO THE FIRST MEAL OF THE DAY Rosuvastatin Calcium 10 MG Oral Tablet (Crestor) Take 1 Tablet by mouth in the morning. valACYclovir HCl 500 MG Oral Tablet (Valtrex) take 1 tablet by mouth once daily TO PREVENT OUTBREAKS Vitamin B-12 1000 MCG Oral Tablet (Cyanocobalamin) Take 1 Tablet by mouth in the morning. clonazePAM 0.5 MG Oral Tablet (KlonoPIN) 1/2 tab at bedtime as needed Ondansetron 4 MG Oral Tablet Disintegrating (Zofran) Aspirin 81 MG Oral Tablet Delayed Release Take 1 Tablet by mouth in the morning. Polyethylene Glycol 3350 17 GM/SCOOP Oral Powder (Miralax) TAKE 17GM DISSOLIVED IN WATER AND TAKE 0TO 2 TIMES A DAY WITH GOAL OF HAVING ONE SOFT BM PER DAY Nystatin powder Apply to affected area Physical Exam: BP 134/78 | Pulse 59 | Temp 36.1 C (97 F) (Tympanic) | Resp 16 | Ht 1.626 m (5' 4") | Wt 91.2 kg (201 lb) | LMP 02/12/2003 | SpO2 99% | BMI 34.50 kg/m | BSA 2.03 m Constitutional: Alert, oriented and in no acute distress Chest: Normal respiratory effort at rest Neuro: Fluent speech Psych: Appropriate mood and affect. Assessment & Plan: Encounter Diagnoses Name Primary? BYRON (obstructive sleep apnea) Yes HTN, goal below 140/90 BMI 34.0-34.9,adult History of moderately severe obstructive sleep apnea based on AHI criteria diagnosed in 2019. Priorto Jerel' recall, she was compliant and benefiting from treatment. -Discussed treatment options including PAP, HGNS, OAT (intended for mildly cases of apnea) -Agreeable to restarting CPAP with intent on ordering a replacement CPAP as her unit is >5 yearsold, and obsolete. She is not comfortable using the Jerel PAP unit. -HSAT ordered Await results. Plan to order ResMed CPAP if indicated (no preference on DME supplier) AMIRAH Gonzalez [facility] I spent a total of 30-39 minutes (exact time 30 mins) on the date of service in preparation, delivery, and documentation of the care provided to Diana Angel excluding any time spent in the performance of separately billed services. documented in this encounter Nursing Notes * Vonnie Baker LPN - 12/03/2023 10:14 AM EDT Chief Complaint Patient presents with Follow Up Sleep Apnea Cpap-not used since recall in 2020 [place] Sleepiness Scale Question 12/03/2023 10:13 AM EDT - Filed by Vonnie Baker LPN What is the chance you will doze off in the following situation? Sitting and reading No chance of dozing Watching TV No chance of dozing Sitting inactive in a public place, such as a theater or meeting No chance of dozing As a passenger in a car for an hour without a break No chance of dozing Lying down to rest in the afternoon when circumstances permit High chance of dozing When sitting and talking to someone No chance of dozing When sitting quietly after lunch without alcohol No chance of dozing In a car, while stopped for a few minutes in traffic No chance of dozing Score (range: 0 - 24) 3 documented in this encounter Miscellaneous Notes * Addendum Note - Yuridia Aguirre CRNP - 12/03/2023 12:35 PM EDTAddended by: YURIDIA AGUIRRE on: 12/03/2023 12:35 PM Modules accepted: Orders documented in this encounter Plan of Treatment Upcoming Encounters Date Type Department Care Team (Late st Contact Info) Description 12/23/2023 1:20 PM EDT Office Visit [facility] [address] [place] [phone] Corey Quigley MD [address], [place] [phone] 01/29/2024 11:30 AM EDT [facility] [address] [place] [address] [place] [address] [place] [address] 01/13/2025 2:20 PM EDT Office [address] [address] Bushra Alejandra, RICHARD [address] [place] [address] [place] [phone] Scheduled Orders Name Type Priority Associated Diagnoses Orde r Schedule TIMED SLEEP STUDY, UNATTEND, HR/O2 SAT/RESP Procedures Routine BYRON (obstructive sleep apnea) HTN, goal below 140/90 BMI 34.0-34.9,adult Ordered: 12/03/2023 Health Maintenance Due Date Last Done Comments Albumin/Creatinine Ratio 1968 Cologuard 1995 Fecal Occult Blood Test 1995 Zoster Vaccines (2 of 3) 05/31/2015 04/05/2015 Depression Screening 12/14/2022 12/14/2021 COVID-19 Vaccine ( - season) 2023 09/13/2021, 11/20/2020, 10/21/2020 Mammogram 05/21/2024 05/21/2023, 04/09, 05/01/2022, Additional history exists GFR 07/16/2024 07/16/2023, 10/2021, 08/02/2021, Additional history exists Sigmoidoscopy 07/30/2026 07/30/2021 DXA Scan 05/16/2027 05/16/2020, 040 10/2012, 11/02/2007, Additional history exists Lipid Panel 07/16/2028 07/16/2023, 0704/2021, 09/30/2019, Additional history exists DTaP,Tdap,and Td Vaccines [...] adult documented in this encounter Care Teams [place] Machine Operator Relationship Specialty Start Date End Date Corey Quigley MD [address] [place] [address] PCP - General 11/04/02 documented as of this encounter
--- OUTSIDE RECORDS SUMMARY | 2024-04-07 00:15 | External Medical Summary | Summary of Care ---
Author Name Unknown Organization [facility] Address [address] [place] [address] Phone [phone] Care Team Providers Care Irrigation Manager Name Role Phone Corey Quigley MD Primary Care Provider Reason for Visit * Reason Comments Follow Up Sleep Apnea * Evaluate & Treat - Unlimited Visits (Within 30 days (routine)) - Closed Specialty Diagnoses / Procedures Referred By Contbenjamin t Referred To Contact Sleep Medicine / Sleep Disorders Diagnoses BYRON (obstructive sleep apnea) Corey Quigley MD [address] [place] [address] Referral ID Status Reason Start Date Expiration Date V isits Requested Visits Authorized [id number] Closed Specialty Services Required 05/30/2023 2 2 Encounter Details Date Type Department Care Team (Late st Contact Info) Description 12/03/2023 10:30 AM EDT Office Visit Sleep Disorders Ctr [facility] [address] [place] [phone] Yuridia Aguirre CRNP [address] [place] [address] BYRON (obstructive sleep apnea)*; HTN, goal below [...] brochure offered , patient declined. LOC PRIM [id number] 10/17/2004 HTN, goal below 140/90 10/09/2001 Esophageal [...] mRNA, LNP-s, No Pre serve, 2-Dose Series ([employer]opolitan) 09/13/2021,11/20/2020,10/21/2020 H1N1 2009 Influenza, IM 09/27/2009 PPD [...] Aguirre CRNP - 12/03/2023 10:32 AM EDT [facility] Diana Angel is a 73 year old female seen today for follow-up with history of BYRON, untreated. Initially presented with snoring, witnessed apnea, nocturnal DORIS, nocturia, RLS, daytime somnolence(ESS 7, FOSQ10 29). -Split PSG 10/2018 (wt 199 lb): AHI 24, PLMI 23, SpO2 <89% 1.5 minutes; nasal CPAP to 7 cwp, ZrN3efoff 89% -Doesn't care for chin strap -Stopped CPAP due to Jerel' recall Interim History: Received replacement CPAP from [facility] but hasn't used. Not comfortable with using it. Interested in other treatment options and recommendations. Weight is back up. Boyfriend reports loud snoring andpauses in breathing. Compliance Data: Report date ends 04/24/2021 Equipment: DME Provider: Comeks Device: FabZat Settings: 9-12 cmH20 Interface Type: SALON LEADER [place] Sleepiness Scale Question 12/03/2023 10:13 AM EDT [...] HTN, goal below 140/90 I10 LOC PRIM [id number] M17.10 ADVANCE DIRECTIVE INFORMATION Dyslipidemia, goal LDL [...] supplier) AMIRAH Gonzalez [facility] I spent a total of 30-39 minutes [...] Apnea Cpap-not used since recall in 2020 [place] Sleepiness Scale Question 12/03/2023 10:13 AM EDT [...] Description 12/23/2023 1:20 PM EDT Office Visit [facility] [address] [place] [facility] [place] [phone] Corey Quigley MD [address] [place], [place] [phone] 01/29/2024 11:30 AM EDT [facility] [address] [place] [address] [place] [address] [place] [address] 01/13/2025 2:20 PM EDT Office [address] [address] Bushra Alejandra, RICHARD [address] [place] [address] [place] [phone] Scheduled Orders Name Type Priority Associated Diagnoses [...] adult documented in this encounter Care Teams Irrigation Manager Relationship Specialty Start Date End Date Corey Quigley MD [address] [place] [address] PCP - General 11/04/02 documented as of this encounter
--- OUTSIDE RECORDS SUMMARY | 2024-04-07 00:15 | External Medical Summary ---
Author Name Unknown Address Unknown Organization K01:[facility] - [address] [facility] [id number] Laboratory Report Ordering Provider Test Date Status AUGUSTUS RUANOMAC 12/23/2023 14:38:29 Final Observation Date Value Abnormality Reference (Units ) Status HbA1C 12/23/2023 14:38:29 5.5 4.0-5.6 (% ) Final The use of HbA1c to monitor glycemic status is based on normal hemoglobin and HbA composition. This test should not be used in patients with abnormal hemoglobin that affects the half life of the red blood cell or the in vivo glycation rates. Glucose, estimated average 12/23/2023 14:38:29 111 <126 (mg/dL) Final Performing Location [facility] - [address] [facility] [address]
--- OUTSIDE RECORDS SUMMARY | 2024-04-07 00:15 | External Medical Summary | Summary of Care ---
Author Name Unknown Organization [facility] Address [address] [facility] [place] [address] Phone [phone] Care Team Providers Care Sap Project Manager Name Role Phone Corey Quigley MD Primary Care Provider Reason for Visit * Reason Comments Follow Up Efudex, stopped this AM Encounter Details Date Type Department Care Team (Late st Contact Info) Description 11/20/2023 11:40 AM EDT Office Visit Dermatology[address] [address] Bushra Alejandra PA-C [address] [place] [address] [place] [phone] Irritant contact dermatitis due to drug in [...] brochure offered , patient declined. LOC PRIM [id number] 10/17/2004 HTN, goal below 140/90 10/09/2001 Esophageal [...] mRNA, LNP-s, No Pre serve, 2-Dose Series (HealthLoop) 09/13/2021,11/20/2020,10/21/2020 H1N1 2009 Influenza, IM 09/27/2009 PPD [...] zinc. Product examples; Think sport, Think baby, Beacon, Babo botanicals, [place] [employer]ir[employer], [place] baby. "Baby" products can be used for all ages. documented in this encounter Progress Notes * Jhoan Gill MD - 11/20/2023 1:15 PM EDT I have seen and examined the patient via teledermatology review of chart note and photos with Bushra Alejandra PA-C. I have reviewed and agree with the assessment and plan. * Bushra Alejandra PA-C - 11/20/2023 11:40 [...] (PDT and Efudex face 11/29) Reviewed all [facility] Dermatology pathology reports and clinic notes as [...] AM EDT Office Visit Sleep Disorders Ctr [facility] [address] [facility] [place] [phone] Yuridia Raman CRNP [address] [facility] [place] [address] 12/03/2023 2:20 PM EDT Office Visit [facility] [address] [place] [facility] [place] [phone] Corey Quigley MD [address] [facility] [place] [address] 01/13/2025 2:20 PM EDT Office Visit Dermatology, [place] [address] [place] [address] Bushra Alejandra PA-C [address] [place] [address] [place] [phone] Health Maintenance Due Date Last Done Comments [...] Not on filedocumented as of this encounter Procedures Procedure Name Priority Date/Time Associated Diagnosis Comments DERM IMAGE (SITE) Routine 11/20/2023 Hx of nonmelanoma skin cancer Actinic keratosis Irritant contact dermatitis due to drug in contact with skin documented in this encounter Results * DERM IMAGE (SITE) (11/20/2023) 11/20/2023 Bushra Alejandra PA-C DIGITAL PHOTOG NICHELLE documented in this encounter Visit Diagnoses Diagnosis Irritant contact dermatitis due to drug in contact with skin- Primary Contact dermatitis and other eczema due to drugs and medicines in contact with skin Hx of nonmelanoma skin cancer Personal history of other malignant neoplasm of skin Actinic keratosis documented in this encounter Care Teams Sap Project Manager Relationship Specialty Start Date End Date Corey Quigley MD [address] [place] [address] PCP - General 11/04/02 documented as of this encounter
--- OUTSIDE RECORDS SUMMARY | 2024-04-07 00:15 | External Medical Summary | Summary of Care ---
Author Name Unknown Organization [facility] Address [address] [place] [address] Phone [phone] Care Team Providers Care Shipwright Name Role Phone Corey Quigley MD Primary Care Provider Reason for Visit * Reason Comments Follow Up 6 month return Encounter Details Date Type Department Care Team (Late st Contact Info) Description 12/23/2023 1:20 PM EDT Office Visit [facility] [address] [place] [address] Corey Quigley MD [address] [place] [address] Low vitamin B12 level*; Prediabetes; B12 deficiency Allergies Active Allergy Reactions Criticality Noted Date Comments Atorvastatin Calcium Muscle pain 07/07/2006 Simvastatin 06/01/2010 Muscle weakness documented as of this encounter (statuses as of 12/26/2023) Medications Medication Sig Dispensed Refills Start Date [...] as of this encounter (statuses as of 12/26/2023) Active Problems Problem Noted Date Diagnosed Date [...] brochure offered , patient declined. LOC PRIM [id number] 10/17/2004 HTN, goal below 140/90 10/09/2001 Esophageal reflux 09/03/1999 ADJ DISORDER W/DEPRES MOOD 09/03/1999 Anxiety state 09/03/1999 documented as of this encounter (statuses as of 12/26/2023) Resolved Problems Problem Noted Date Diagnosed Date [...] 2001 HSV culture positive. Mixed dyslipidemia 07/16/2005 12 9 Overview: Per Lipid Taxonomy. Urinary incontinence [...] as of this encounter (statuses as of 12/26/2023) Immunizations Name Administration Dates Next Due COVID-19 mRNA, LNP-s, No Pre serve, 2-Dose Series ([employer]) 09/13/2021,11/20/2020,10/21/2020 H1N1 2009 Influenza, IM 09/27/2009 Pneumococcal [...] Date Smoking Tobacco: Never Smokeless Tobacco: Never Tobacco Cessation:Counseling Given: Not Answered Alcohol Use Standard Drinks/Week Comments Yes 0 [...] Sign Reading Time Taken Comments Blood Pressure 122/68 12/23/2023 1:27 PM EDT Pulse 64 12/23/2023 1:27 PM EDT Temperature 35.8 C (96.4 F) 12/23/2023 1:27 PM ED T Respiratory Rate 16 12/23/2023 1:27 PM EDT Oxygen Saturation 95% 12/23/2023 1:27 PM EDT Inhaled Oxygen Concentration - - Weight 92.1 kg (203 lb) 12/23/2023 1:27 PM EDT Height 162.6 cm (5' 4") 12/23/2023 1:27 PM EDT Body Mass Index 34.84 12/23/2023 1:27 PM EDT documented in this encounter Progress Notes * Corey Quigley MD - 12/23/2023 1:48 PM EDT Subjective: Diana Angel is a 73 year old female. Chief Complaint Patient presents with Follow Up 6 month return HPI: 73-year-old seen today as a routine six-month recheck. Known history of bladder carcinoma urethral carcinoma esophageal reflux, hypertension and obstructive sleep apnea. She had been on CPAP butdiscontinued because she thought that it may have had some of the do with her developing bladder car cinoma. She is prepared to go back on it She questions how she knows if she has a urinary tract infection because she does not have a bladder. She has developed what sounds like paroxysmal stabbing upper lumbar back pain bilateral occasionally in questions whether that Um is due to a urinary tract infection. She has been seen in this office a couple of times and had urine cultures which always come back as multiple organisms which ultimately really did not help to differentiate anything. Um previously she would told me that she was having some leakage around her ostomy. She actually was able to communicate with the auto claim representative from the ostomy company and they told her to eliminatethe gel layer/ring and that has really made a difference. She is aware of a ventral hernia which is predominantly in the left side of the abdomen but she feels that it at times pushes towards the right side and then affects her ability to apply her ostomy in makes that area uncomfortable. She has noted a tremor in the left upper extremity. Mainly a problem with activity in particular using eating utensils. Drinks rarely so she has not sure whether there is any improvement with alcohol. Can occur any time of the day. She has cut back on caffeine Follows still closely with [facility]. Blood work from 5 months ago showed a hemoglobin A1c of 5.9. Also had slightly low B12 level. She now is on B12 supplement-1 daily She has not absolutely sure but she gets a reflux type of symptoms in the back of her throat at times. She is on omeprazole 20 mg daily. 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 (Patient not taking: Reported on 12/23/2023) 30 Capsule 1 No current facility-administered medications for this visit. Review of patient's allergies indicates: Allergen Reactions Lipitor [Atorvastatin Calcium] Muscle pain Zocor [Simvastatin] Muscle weakness Objective: BP 122/68 | Pulse 64 | Temp 35.8 C (96.4 F) (Temporal Artery) | Resp 16 | Ht 1.626 m (5' 4") | Wt 92.1 kg (203 lb) | LMP 02/12/2003 | SpO2 95% | BMI 34.84 kg/m | BSA 2.04 m Physical Exam: Her weight is up 15 lb in the last year CONST: alert, pleasant, no acute distress HEAD: normocephalic, atraumatic NECK: supple, soft, no adenopathy Eyes - PERRLA, EOM'I OROPHARYNX: clear, no swelling or erythema, moist CV: regular rate and rhythm, no murmur CHEST: clear to auscultation bilaterally, no rales or wheezing ABD: soft, non tender, there feels like there could be a hernia just to the left of midline in the upper abdomen. It is nontender. No hepatosplenomegaly. EXT: no edema, no joint swelling or deformities, NEURO: AAOx3, no gross focal deficits, cerebellar signs normal, affect appropriate. She has a slight tremor of the left hand. This is not a pill rolling tremor and it is mainly noted with movement. She has a little bit of trouble with [id number]-hg-[id number] with the left hand but not the right hand. She also has a slight intermittent tremor of her lips MENTAL STATUS: no evidence of thought disorder, no delusional thought, no evidence of paranoia, thought is non-tangential. SKIN: no rash or significant lesions ASSESSMENT/PLAN: 1. Tremor-I think that this is a intention tremor/essential tremor/benign tremor. I suggested she have an alcoholic drink and see if that improves the tremor which would be helpful diagnostically butI would not do it therapeutically. Right now I do not think further neurologic evaluation to be necessary. 2. Low B12 level-continue B12 supplementation. Check B12 level. She should be normal at this 3. Pre diabetes-explained the problems with the patient. She is going to work on weight loss. Checkhemoglobin A1c again 4. History of urine diverting ostomy-difficult to tell if and when she has urinary tract infection.I think what she is describing sounds more like muscle spasm given the paroxysmal nature Um of the pain. No simple diagnosis of UTI doable. 5. Possible gastroesophageal reflux despite omeprazole therapy. I suggested she up the omeprazole to 40 mg a day for 2 weeks and see if that makes any difference. If it helps she is get in touch withme. If it does not make any difference then she is just to go back to 20 mg and stay at that dose. See again 6 months Corey Quigley MD documented in this encounter Nursing Notes * Adalgisa Jeff LPN - 12/23/2023 1:27 PM EDT Diana Angel is a 73 year old female who presents today for Chief Complaint Patient presents with Follow Up 6 month return documented in this encounter Plan of Treatment Upcoming Encounters Date Type Department Care Team (Late st Contact Info) Description 01/29/2024 11:30 AM EDT PulmDiagnostic Sleep Lab [facility] [address] [place] [id number] [facility] [address] [place] [address] 06/24/2024 1:00 PM EDT [address] [phone] Corey Quigley MD [address] [place] [address] 01/13/2025 2:20 PM EDT Office Visit Dermatology, [facility] [address] [place] [facility] [place] [address] Bushra Alejandra PA-C [address] [place] [address] [place] [address] Health Maintenance Due Date Last Done Comments [...] Sigmoidoscopy 07/30/2026 07/30/2021 DXA Scan 05/16/2027 05/16/2020, 0410/2012, 11/02/2007, Additional history exists Lipid Panel 07/16/2028 [...] Not on filedocumented as of this encounter Results * HEMOGLOBIN A1C (12/23/2023 2:38 PM EDT) Hemoglobin A1C 5.5 4.0 - 5.6 % 12/23/2023 11:36 PM EDT LABORATORY [facility] Comment:The use of HbA1c to monitor glycemic status is based on normal hemoglobin and HbA composition. This test should not be used in patients with abnormal hemoglobin that affects the half life of the red blood cell or the in vivo glycation rates. Estimated Average Glucose 111 <126 mg/dL 12/23/2023 11:36 PM EDT LABORATORY [facility] Blood Venous blood specimen / Unknown Venipuncture / Unknown 12/23/2023 2:38 PM EDT 12/23/2023 2:41 PM EDT Corey Quigley MD LAB BLOOD ORDERABLES Performing Organization Address City/[facility]/ZIP Co de Phone Number LABORATORY [facility] [address] [place] [address] * VITAMIN B12 (12/23/2023 2:38 PM EDT) Vitamin B12 488 232 - 1,245 pg/mL 12/24/2023 4:19 AM EDT LABORATORY [facility] Blood Venous blood specimen / Unknown Venipuncture / Unknown 12/23/2023 2:38 PM EDT 12/23/2023 2:41 PM EDT Corey Quigley MD LAB BLOOD ORDERABLES LABORATORY [facility] [address] [place] [address] documented in this encounter Visit Diagnoses Diagnosis Low vitamin B12 level- Primary Other B-complex deficiencies Prediabetes Other abnormal glucose B12 deficiency Other B-complex deficiencies documented in this encounter Care Teams Shipwright Relationship Specialty Start Date End Date Corey Quigley MD [address] [place] [address] PCP - General 11/04/02 documented as of this encounter
--- OUTSIDE RECORDS SUMMARY | 2024-04-07 00:15 | External Medical Summary | Summary of Care ---
Author Name Unknown Organization [facility] Address [address] [place] [address] Phone [phone] Care Team Providers Care Brewery Pumper Name Role Phone Corey Quigley MD Primary Care Provider Reason for Visit * Reason Comments Follow Up Sleep Apnea * Evaluate & Treat - Unlimited Visits (Within 30 days (routine)) - Closed Specialty Diagnoses / Procedures Referred By Contbenjamin t Referred To Contact Sleep Medicine / Sleep Disorders Diagnoses BYRON (obstructive sleep apnea) Corey Quigley MD [address] [place] [address] Referral ID Status Reason Start Date Expiration Date V isits Requested Visits Authorized [id number] Closed Specialty Services Required 05/30/2023 2 2 Encounter Details Date Type Department Care Team (Late st Contact Info) Description 12/03/2023 10:30 AM EDT Office Visit Sleep Disorders Ctr [facility] [address] [place] [phone] Yuridia Aguirre CRNP [address] [place] [phone] BYRON (obstructive sleep apnea)*; HTN, goal below [...] brochure offered , patient declined. LOC PRIM [id number] 10/17/2004 HTN, goal below 140/90 10/09/2001 Esophageal [...] mRNA, LNP-s, No Pre serve, 2-Dose Series ([employer]) 09/13/2021,11/20/2020,10/21/2020 H1N1 2009 Influenza, IM 09/27/2009 PPD [...] Aguirre CRNP - 12/03/2023 10:32 AM EDT [facility] Diana Angel is a 73 year old female seen today for follow-up with history of BYRON, untreated. Initially presented with snoring, witnessed apnea, nocturnal DORIS, nocturia, RLS, daytime somnolence(ESS 7, FOSQ10 29). -Split PSG 10/2018 (wt 199 lb): AHI 24, PLMI 23, SpO2 <89% 1.5 minutes; nasal CPAP to 7 cwp, HaK9rwzak 89% -Doesn't care for chin strap -Stopped CPAP due to [employer]' recall Interim History: Received replacement CPAP from [employer] but hasn't used. Not comfortable with using it. Interested in other treatment options and recommendations. Weight is back up. Boyfriend reports loud snoring andpauses in breathing. Compliance Data: Report date ends 04/24/2021 Equipment: DME Provider: [email or web address] Device: Ener1 Settings: 9-12 cmH20 Interface Type: MANAGER SHIPPING [place] Sleepiness Scale Question 12/03/2023 10:13 AM EDT [...] HTN, goal below 140/90 I10 LOC PRIM [id number] M17.10 ADVANCE DIRECTIVE INFORMATION Dyslipidemia, goal LDL [...] supplier) AMIRAH Gonzalez [facility] I spent a total of 30-39 minutes (exact time 30 mins) on the date of service in preparation, delivery, and documentation of the care provided to Diana Angel excluding any time spent in the performance of separately billed services. Please verify the following with the patient before ordering WatchPAT study: Does patient have Wifi? Yes Does patient have smart phone? Yes Do they have acrylic nails or nail sao tomean? No: Do they have a pacemaker? No Are they on alphablockers? Please list which med is the alphablocker: no What is the phone number of the cell phone they will be using? documented in this encounter Nursing Notes * Vonnie Baker LPN - 12/03/2023 10:14 AM EDT Chief Complaint Patient presents with Follow Up Sleep Apnea Cpap-not used since recall in 2020 Eldridge Sleepiness Scale Question 12/03/2023 10:13 AM EDT [...] Description 12/23/2023 1:20 PM EDT Office Visit [facility] [place] [address] [facility] [phone] Corey Quigley MD [address] [place] [address] 01/29/2024 11:30 AM EDT PulmDiagnostic Sleep Lab [facility] [address] [facility] [address] [facility] Home Study [facility] [address] [facility] [place] [address] 01/13/2025 2:20 PM EDT Office Visit Dermatology, [place] [address] [place] [facility] [place] [address] Bushra Alejandra, PAArie [address] [place] [address] [place] [address] Scheduled Orders Name Type Priority Associated Diagnoses [...] adult documented in this encounter Care Teams Brewery Pumper Relationship Specialty Start Date End Date Corey Quigley MD [address] [place] [address] PCP - General 11/04/02 documented as of this encounter
--- NOTE | 2024-04-07 00:44 | CT Scan Report ---
Exam(s): CT HEAD Without Contrast EXAM: CT Head Without Intravenous Contrast CLINICAL HISTORY: Reason for exam: ?new facial droop L face. TECHNIQUE: Axial computed tomography images of the head/brain without intravenous contrast. Automated exposure control was utilized for the study. A dose lowering technique was utilized adhering to the principles of ALARA. COMPARISON: No relevant prior studies available. FINDINGS: Brain: Age-related cerebral volume loss. Periventricular and subcortical white matter hypoattenuation, consistent with chronic microangiopathy. No acute intracranial hemorrhage. No midline shift or mass effect. Ventricles: Unremarkable. No ventriculomegaly. Bones/joints: Unremarkable. No acute fracture. Soft tissues: Unremarkable. Sinuses: Unremarkable as visualized. No acute sinusitis. Mastoid air cells: Unremarkable as visualized. No mastoid effusion. IMPRESSION: No acute intracranial hemorrhage. No midline shift or mass effect. Electronically signed by: Devaughn Arrington MD 04/07/24 00:43 AM
--- NOTE | 2024-04-07 00:48 | CT Scan Report ---
Exam(s): CT C SPINE EXAM: CT Cervical Spine Without Intravenous Contrast CLINICAL HISTORY: Reason for exam: neck pain. TECHNIQUE: Axial computed tomography images of the cervical spine without intravenous contrast. CTDI is 11.87 mGy and DLP is 823 mGy-cm. Automated exposure control was utilized for the study. A dose lowering technique was utilized adhering to the principles of ALARA. COMPARISON: No relevant prior studies available. FINDINGS: The vertebral body heights are maintained. The craniocervical junction is intact. The atlanto-dens interval is maintained. The dens is intact. There is no spondylolisthesis. Multilevel cervical spondylosis and degenerative disc disease. Straightening of the cervical lordosis. The unenhanced neck soft tissues are grossly unremarkable. The visualized lung apices are grossly clear. IMPRESSION: No acute fracture or subluxation of the cervical spine. Electronically signed by: Devaughn Arrington MD 04/07/24 00:47 AM
--- NOTE | 2024-04-07 00:52 | CT Scan Report ---
Exam(s): CTA CHEST IV Amt: 118 ML OPTIRAY 320 EXAM: CT Angiography Chest With Intravenous Contrast CLINICAL HISTORY: Reason for exam: cp. TECHNIQUE: Axial computed tomographic angiography images of the chest with intravenous contrast. CTDI is 27.42 mGy and DLP is 823 mGy-cm. Automated exposure control was utilized for the study. A dose lowering technique was utilized adhering to the principles of ALARA. MIP reconstructed images were created and reviewed. COMPARISON: No relevant prior studies available. FINDINGS: Pulmonary arteries: Unremarkable. No acute pulmonary embolism. Aorta: Atherosclerotic changes of the aorta. No thoracic aortic aneurysm. Lungs: Atelectasis at the lung bases. No mass. Pleural space: Unremarkable. No significant effusion. No pneumothorax. Heart: Cardiomegaly. No significant pericardial effusion. No evidence of RV dysfunction. Bones/joints: Degenerative changes of the spine. No acute fracture. No dislocation. Soft tissues: Ventral abdominal wall hernia, partially included in the bewky-dw-gnhc. Lymph nodes: Unremarkable. No enlarged lymph nodes. Gallbladder and bile ducts: Cholecystectomy. IMPRESSION: No acute pulmonary embolism. Electronically signed by: Devaughn Arrington MD 04/07/24 00:51 AM
[2024-04-07] MEDS ORDERED: POLYETHYLENE (MIRALAX) 17 GM PACK PO PRN (01:18)
[2024-04-07] MEDS: FLUoxetine HCL 20 MG CAP PO SCH (01:41)
[2024-04-07] MEDS: clonazePAM 0.5 MG TAB PO PRN (02:03)
--- NOTE | 2024-04-07 04:26 | Magnetic Resonance Report ---
Exam(s): MRI HEAD Without Contrast EXAM: MR Head Without Intravenous Contrast CLINICAL HISTORY: L facial weakness. TECHNIQUE: Magnetic resonance images of the head/brain without intravenous contrast in multiple planes. COMPARISON: CT head 04/06/2024 FINDINGS: Brain: Age-appropriate central and peripheral atrophy. Minimal supratentorial periventricular and subcortical white matter hyperintensities on FLAIR and T2-weighted images. Ventricles: No midline shift. No ventriculomegaly. Bones/joints: Unremarkable. No acute fracture. Sinuses: Unremarkable as visualized. No acute sinusitis. Mastoid air cells: Unremarkable as visualized. No mastoid effusion. Orbits: Unremarkable as visualized. IMPRESSION: 1. No acute stroke or hemorrhage. 2. Minimal nonspecific white matter changes most commonly seen with small vessel disease. Electronically signed by: Freddie Preston M.D. 04/07/24 04:26 AM
--- NOTE | 2024-04-07 04:28 | Magnetic Resonance Report ---
Exam(s): MRA HEAD Without Contrast EXAM: MR Angiography Head Without Intravenous Contrast CLINICAL HISTORY: L facial weakness. TECHNIQUE: Magnetic resonance angiography images of the head without intravenous contrast. COMPARISON: MRI brain 04-07-2024. FINDINGS: Right internal carotid artery: No acute abnormality. Intracranial segment is patent with no significant stenosis. No aneurysm. Right anterior cerebral artery: Unremarkable. No occlusion or significant stenosis. No aneurysm. Right middle cerebral artery: Unremarkable. No occlusion or significant stenosis. No aneurysm. Right posterior cerebral artery: Unremarkable. No occlusion or significant stenosis. No aneurysm. Right vertebral artery: Unremarkable as visualized. Left internal carotid artery: No acute abnormality. Intracranial segment is patent with no significant stenosis. No aneurysm. Left anterior cerebral artery: Unremarkable. No occlusion or significant stenosis. No aneurysm. Left middle cerebral artery: Unremarkable. No occlusion or significant stenosis. No aneurysm. Left posterior cerebral artery: Unremarkable. No occlusion or significant stenosis. No aneurysm. Left vertebral artery: Unremarkable as visualized. Basilar artery: Unremarkable. No occlusion or significant stenosis. No aneurysm. IMPRESSION: No large vessel occlusion. Electronically signed by: Freddie Preston M.D. 04/07/24 04:27 AM
[2024-04-07 06:06] LABS: Basophils # (auto) 0.01 K/uL (0.00-0.20); Basophils % (auto) 0.2 %; Hemoglobin 13.6 g/dl (12.0-16.0); Immature Granulocytes # (auto) 0.03 K/uL (0.01-0.20); Immature Granulocytes % (auto) 0.6 %; Lymphocytes # (auto) 0.46 K/uL (1.20-3.40); Lymphocytes % (auto) 9.2 %; Mean Corpuscular Hemoglobin 30.2 pg (25.0-34.0); Mean Corpuscular Hgb Conc 34.9 g/dL (32.0-36.0); Mean Corpuscular Volume 86.7 fL (80.0-100.0); Monocytes # (auto) 0.12 K/uL (0.11-0.59); Monocytes % (auto) 2.4 %; Neutrophils # (auto) 4.37 K/uL (1.40-6.50); Neutrophils % (auto) 87.6 %; Platelet Count 174 K/uL (130-400); RDW Coefficient of Variation 12.9 % (11.5-14.5); RDW Standard Deviation 40.5 fL (36.4-46.3); White Blood Count 4.99 K/ul (4.8-10.8)
[2024-04-07 06:22] LABS: Calcium 9.1 mg/dl (8.6-10.3); Chol HDL Ratio 2.7 (0-5); Creatinine Clr Calc Pharmacy 59.9 ml/min; Est GFR (African American) 69.8 ml/min; Est GFR (Non-African American) 60.2 ml/min; Potassium 4.1 mmol/L (3.5-5.1)
[2024-04-07 06:28] LABS: Troponin I High Sensitivity 3.3 pg/ml (0-14)
--- NOTE | 2024-04-07 06:49 | XRay Report ---
XR chest 1V not portable CLINICAL HISTORY: Chest pain, nonspecific TECHNIQUE: Single frontal radiograph of the chest was obtained. Comparison: Comparison is made to chest radiograph 05/22/2021 FINDINGS: No lines and tubes are seen. The cardiomediastinal silhouette is normal. The lungs are clear. No evid ence of pleural effusion or pneumothorax. IMPRESSION: No acute chest disease. ACT 112: Negative or not required by law. Electronically signed by: Donavan Dean M.D. 04/07/2024 6:48 AM
[2024-04-07 08:05] LABS: Estimated Average Glucose 114 mg/dl; Hemoglobin A1C 5.6 % (4.5-5.6)
[2024-04-07 08:29] VITALS: RESP 16
--- NOTE | 2024-04-07 08:56 | Ultrasound Report ---
BILATERAL CAROTID DOPPLER STUDY HISTORY: lip asymmetry COMPARISON: None. TECHNIQUE: Real-time, grayscale, and color Doppler sonography of the carotid arteries was performed. Imaging reviewed in the transverse and longitudinal planes. All measurements were calculated based on NASCET criteria. FINDINGS: Antegrade flow is seen in the bilateral vertebral arteries. Mild calcified plaque within the left internal carotid artery.. The peak systolic velocity within the right ICA is 65 cm/s. The right systolic ratio is 0.9. The peak systolic velocity within the left ICA is 65 cm/s. The left systolic ratio is 0.9. IMPRESSION: No hemodynamically significant stenosis seen within the carotid arteries. ACT 112: Negative or not required by law. Electronically signed by: Phan Wilkes M.D. 04/07/2024 8:55 AM
[2024-04-07] MEDS: ENOXAPARIN INJ 40 MG/0.4 ML SYR SQ SCH (09:11)
--- NOTE | 2024-04-07 10:21 | Hospitalist Progress Note ---
Date of Service April 07, 2024 Assessment & Plan (1) Atypical chest pain: Plan: Patient is a 73-year-old female with past medical history of hypertension, hyperlipidemia, history of DVT status post anticoagulation, BYRON, bladder cancer status post surgery, mood disorder who presents to the hospital with right-sided pleuritic chest pain. Atypical chest pain ACS ruled out PE ruled out Likely secondary to MSK Patient presented with right-sided pleuritic chest pain CTA chestno PE; no infiltrate EKG shows normal sinus rhythm; nonspecific T wave changes. High sensitive troponin negative Continue pain control Obtain echocardiogram Flattened left nasolabial fold Stroke ruled out In the ED family report patient's left lower lip to be slightly lower No other weakness/numbness of any body part MRI brainno acute stroke Head MRAno acute finding Carotid Dopplerno acute finding Chronic conditions; Hypertensioncontinue on atenolol Hyperlipidemiacontinue on rosuvastatin Mood disordercontinue fluoxetine Please note the above document was generated using voice recognition software. It may contain grammatical, syntax or spelling errors. Any formal questions or concerns about the content, text or information contained within the body of this dictation should be directly addressed to the provider for clarification Admission and Anticipated Discharge Date Admission Date: April 06, 2024 Subjective Patient seen and examined at bedside. Comfortable; not in distress. Denies fever, chills, chest pain, shortness of breath, abdominal pain or urinary symptoms. No significant overnight events Review of Systems Review of Systems: All systems reviewed & are unremarkable except as noted in Subjective Physical Exam Physical Exam: GENERAL: Comfortable; not in distress. SKIN: Normal color, warm HEENT: Bespectacled, pink palpebral conjunctivae, no ptosis, dry buccal mucosa NECK : Supple, no tenderness CHEST : CTA, right chest wall tenderness HEART : RRR, no obvious murmurs ABDOMEN: Some distention, nontender EXTREMITIES : No LE swelling/tenderness, no other conspicuous deformities noted NEUROLOGIC : Coherent, flattened left nasolabial fold, MMTs BUE/BLE 4/5 Results & Data Results & Data Vital Signs (Past 12 Hours) Vital Signs Temp Pulse Pulse Resp BP BP Pulse Ox 04/07/24 08:28 36.5 C 58 L 16 127/61 96 04/07/24 07:32 56 L 04/07/24 04:13 36.6 C 67 20 135/77 93 04/07/24 01:46 04/07/24 01:46 37.1 C 73 20 148/82 H 93 04/07/24 01:31 72 04/07/24 00:36 04/07/24 00:00 20 124/66 95 O2 Del Method 04/07/24 08:28 Room Air 04/07/24 07:32 04/07/24 04:13 Room Air 04/07/24 01:46 Room Air 04/07/24 01:46 Room Air 04/07/24 01:31 04/07/24 00:36 Room Air 04/07/24 00:00 Room Air
[2024-04-07 13:12] VITALS: TEMP 98.1; O2SAT 95
--- NOTE | 2024-04-07 15:49 | Discharge Summary ---
Date of Service April 07, 2024 Admission HPI Per Admitting Provider History obtained from patient, family, and records. Medical history significant for hypertension, hyperlipidemia, history of DVT status post anticoagulation, BYRON currently not on CPAP, bladder cancer status post surgery, PUD, prediabetes, RLS, anxiety/mood disorder. Last confinement 2013 under orthopedic service for elective right knee surgery. Unremarkable postop course. 1 day history of achy right-sided pleuritic chest pain with SOB. No unusual cough symptoms. Some neck discomfort. No recollection of recent trauma. Usual stress at home. At the ER, patient left lower lip noted to be kind of droopy by staff and family. Unknown duration. 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 Admission Exam Per Admitting Provider GENERAL: Slightly uncomfortable, slightly anxious, obese, no respiratory distress SKIN: Normal color, warm HEENT: Bespectacled, pink palpebral conjunctivae, no ptosis, dry buccal mucosa NECK : Supple, no tenderness CHEST : CTA, right chest wall tenderness HEART : RRR, no obvious murmurs ABDOMEN: Some distention, nontender EXTREMITIES : No LE swelling/tenderness, no other conspicuous deformities noted NEUROLOGIC : Coherent, flattened left nasolabial fold, MMTs BUE/BLE 4/5 Principal Diagnosis Right-sided chest pain, likely MSK origin Stroke ruled out Discharge Exam Constitutional: WD/WN, vitals as above, NAD, sitting up in bed, pleasant, conversing easily Chest: Tenderness on palpation of right upper chest. Respiratory: normal respiratory effort, lungs clear to auscultation, no wheeze, rales, rhonchi. Normal insp/exp effort, no accessory muscle use Cardiovascular: RRR, no murmur, no edema Vessels: no JVD or carotid bruit Chest: normal inspection of chest Abdomen: normal bowel sounds, soft, nontender, no hepatosplenomegaly Musculoskeletal: no cyanosis or clubbing, extremities motor strength 5/5 Skin: no rashes, warm and dry normal turgor Neurologic: PERRL, EOMI, accommodation nl, no face palsy, no dysarthria CN's II- XI intact bilaterally and moves all extremities Psychiatric: A+Ox3, euthymic affect Discharge Data Allergies Allergy/AdvReac Type Severity Reaction Status Date / Time [id number]-NpN Reductase AdvReac Unknown MUSCLE Verified 04/06/24 21:13 Inhibitor PAIN/WEAKNESS [Ewinsou-Neq-Min Reductase Inhibitor] Consultations 04/06/24 22:00 ED Decision to Admit Stat Ordered Studies 04/06/24 22:00 CT head/brain wo con Stat 04/06/24 23:21 CT angio chest PE protocol Stat CT cervical spine wo con Stat 04/07/24 01:23 MR brain wo con Urgent 04/07/24 01:24 MR angio head wo con Urgent 04/07/24 04:34 Carotid duplex [US carotid doppler BI] Routine Hospital Course (1) Atypical chest pain: Plan Patient is a 73-year-old female with past medical history of hypertension, hyperlipidemia, history of DVT status post anticoagulation, BYRON, bladder cancer status post surgery, mood disorder who presents to the hospital with right-sided pleuritic chest pain. Atypical chest pain ACS ruled out PE ruled out Likely secondary to MSK Patient presented with right-sided pleuritic chest pain CTA chestno PE; no infiltrate EKG shows normal sinus rhythm; nonspecific T wave changes. High sensitive troponin negative Echocardiogram showed EF of 65 to 70% with grade 1 diastolic dysfunction. Borderline concentric LVH was seen. Patient reported improvement in chest pain at the time of discharge. At the time of discharge, she was given instructions to use Tylenol, lidocaine patches and as needed tramadol for pain control. I also discussed daily blood pressure monitoring at home given borderline concentric LVH in her echocardiogram. Patient to follow-up with her primary care doctor after discharge. Flattened left nasolabial fold Stroke ruled out In the ED family report patient's left lower lip to be slightly lower No other weakness/numbness of any body part MRI brainno acute stroke Head MRAno acute finding Carotid Dopplerno acute finding Please note the above document was generated using voice recognition software. It may contain grammatical, syntax or spelling errors. Any formal questions or concerns about the content, text or information contained within the body of this dictation should be directly addressed to the provider for clarification Total Time Total Time Spent Total Time Spent (In Minutes): 45 Total Time Includes: Examination of the Patient, Discharge Planning, Medication Reconciliation, Communication With Other Providers and Other Discharge Plan Discharge Items Patient Disposition: Home - Self-Care Reason For Visit: CP, L FACIAL WEAKNESS Discharge Diagnosis: Right-sided chest pain, likely MSK origin Stroke rule out Activity: Resume your previous activity Non-emergency contact: Primary Care Provider Call non-emergency contact if: you have any medication questions and your symptoms worsen Follow-up/Referrals: Corey Quigley MD [Primary Care Provider] - Diet: Regular Addtl Attending Provider Instructions: You were admitted to the hospital due to right-sided chest pain. You underwent evaluation with CT chest which did not reveal any pneumonia or blood clot. For the pain control; 1) Take Tylenol 500 mg as needed every 6 hours 2) Use lidocaine patch prescribed to you daily 3) You are also prescribed tramadol 25 mg as needed every 6 hours as needed for severe pain. Echocardiogram showed normal heart function. Please continue to measure your blood pressure at home daily. Please have both feet on the ground and your arm rested when measuring the blood pressure. Please keep a note of it. Your blood pressure medication may need to be adjusted based on the readings. You are also evaluated for stroke. MRI of the brain did not show any acute stroke. Your Lyme screen was also negative. Pending Studies at Discharge: No Stand-Alone Forms: My [employer] and Play, Smoking Cessation Medications and DC Order Prescriptions: New lidocaine 4 % adhesive patch,medicated 1 patch topical DAILY Qty: 10 0RF Rx Instructions: may leave on for up to 12 hrs Apply to right shoulder tramadol 25 mg tablet 25 mg PO Q6H PRN (Reason: pain) Qty: 14 0RF Continued fluoxetine [Prozac] 40 mg capsule 40 mg PO HS valacyclovir [Valtrex] 1 gram tablet 500 mg PO HS omeprazole 20 mg capsule,delayed release(DR/EC) 20 mg PO HS clonazepam 0.5 mg Tablet 0.5 mg PO BID PRN (Reason: Anxiety) atenolol 50 mg tablet 25 mg PO HS aspirin 81 mg Tablet,Delayed Release (Dr/Ec) 81 mg PO HS nystatin 100,000 unit/gram Powder 1 applic TOPICAL BID PRN (Reason: Skin Irritation) polyethylene glycol 3350 [Miralax] 17 gram/dose Powder 17 g PO BID PRN (Reason: Constipation) rosuvastatin 10 mg tablet 10 mg PO HS Ocuvite Adult 50 Plus 250 mg (90 mg-160 mg) Capsule 1 cap PO HS Discharge Orders: Discharge Order (Routine); Ordered 04/07/24 Ordered By: Brad Chase Admission Data Admit Date/Time: 04/06/24 23:24 Attending Provider: Brad Chase Admit Provider: Jm Lynch Primary Care Provider: Corey Quigley Other Providers: Jm Lynch Other Interventions: Discharge Summary Assessment (RN) Last Done: 04/07/24 16:05
[2024-04-07 16:10] VITALS: BP 135/77; PULSE 67
[2024-04-07] MEDS ORDERED: CEROVITE ADV FORMULA TAB PO SCH (21:00)
[2024-04-07] MEDS ORDERED: valACYclovir HCL 500 MG TABLET PO SCH (21:00)
[2024-04-07] MEDS ORDERED: ROSUVASTATIN CALCIUM 10 MG TAB PO SCH (21:00)
[2024-04-07] MEDS ORDERED: ASPIRIN 81 MG ECTAB PO SCH (21:00)
--- NOTE | 2024-04-08 06:53 | Electrocardiogram Report ---
Test Reason : Blood Pressure : / mmHG Vent. Rate : 074 BPM Atrial Rate : 074 BPM P-R Int : 128 ms QRS Dur : 070 ms QT Int : 400 ms P-R-T Axes : 047 003 008 degrees QTc Int : 444 ms Normal sinus rhythm Possible Left atrial enlargement Cannot rule out Anterior infarct , age undetermined Nonspecific T wave abnormality Abnormal ECG When compared with ECG of 22-MAY-2021 09:09, T wave inversion now evident in Inferior leads T wave amplitude has decreased in Anterior leads Confirmed by Melvin Mitchell ([id number]) on 04/08/2024 6:53:41 AM Referred By: REFERRED SELF Confirmed By:Melvin Mitchell
--- NOTE | 2024-04-22 07:42 | Coding Query ---
A supporting diagnosis is required for the test/procedure performed on this patient in order for us to be reimbursed by the patient's insurance. Please provide a supporting diagnosis for the following test/procedure listed below next to the test name along with your signature. *If there is no additional diagnosis for this patient that would support the following test/procedure please document that below next to the test/procedure. Test(s)/Procedure(s) that require a supporting diagnosis: * 12400 MRA Head w/o contrast DIAGNOSIS: CVA Provider Signature: JNO Date: ___04/22/24____ Thank you Ani Youssef Health Information Management Once completed, please kindly fax back to [phone] For questions please call [phone] [facility]
== END 2024-04-07 16:40 | disposition home or self-care (01) ==
LOC: 2N 18:29 → ED 18:29 → 2N 04-07 00:36